=== PATIENT | female | born 1980 | race Caucasian/White ===

== ENCOUNTER 2022-08-04 08:33 | Emergency (ER) | payer OTHER, SELFPAY ==
[2022-08-04 08:41] VITALS: BP 120/93; PULSE 87; RESP 16; TEMP 36.4; O2SAT 96; BMI 54.2
--- NOTE | 2022-08-04 09:14 | ED.GENADULT ---
HPI - General Adult General Chief complaint: General Medical Stated complaint: swollen throat, headache/pressure Time Seen by Provider: 08/04/22 09:05 Source: patient Mode of arrival: ambulatory Limitations: no limitations History of Present Illness HPI narrative: 42 year old female who presents to the emergency department with sore throat x2 days. She reports sore throat, neck pain, pain with swallowing, headache, dry cough, decreased appetite, and left ear pain. Additionally she reports intermittent subjective fevers and chills over the last two days. She tested negative for COVID via at-home COVID test. Denies nausea, vomiting, chest pain, SOB, diarrhea, or constipation. She currently lives in a halfway and states that a few of the residents there recently tested positive for strep throat. MD complaint: sore throat Onset (ago): day(s) (2) Location: head Radiation: non-radiation Severity: mild Quality: aching Pain Consistency: constant Relieving factors: none Exacerbating factors: none Associated symptoms: cough and fever/chills Treatments prior to arrival: none Related Data Previous Rx's Medication Instructions Recorded ibuprofen 600 mg tablet 600 mg PO Q8H PRN fever or pain 08/04/22 #10 tabs Allergies Allergy/AdvReac Type Severity Reaction Status Date / Time acetaminophen [From Percocet] Allergy Intermediate Swelling Verified 08/04/22 08:41 oxycodone [From Percocet] Allergy Intermediate Swelling Verified 08/04/22 08:41 Review of Systems Review of Systems: Yes all other systems are reviewed and are negative [facility] Social History Social History Alcohol intake: never Smoked in Last 30 Days: No Advance Directives: No Physical Exam ED Vital Signs: Vital Signs - 24 hr 08/04/22 08:41 Temperature 97.5 F Pulse Rate 87 Respiratory Rate 16 Blood Pressure 120/93 H Pulse Oximetry 96 Oxygen Delivery Method Room Air BMI result Body Mass Index 54.2 Vital signs stable Appearance: Alert. Oriented X3. No acute distress. Head: normocephalic, atraumatic. Eyes: Pupils equal, round and reactive to light. ENT: Minimal erythema to the posterior oral pharynx. No tonsillar swelling or exudate. Uvula midline. Normal voice. Normal inspection of the tympanic membranes bilaterally. Neck: Normal inspection. Neck supple. No LAD. CVS: Normal heart rate and rhythm. Pulses normal. Respiratory: No respiratory distress. Breath sounds normal. Abdomen: Soft and nontender. +BS x4 Skin: Skin warm and dry. Normal skin color. Normal skin turgor. No rashes. Extremities: No lower extremity edema. No joint swelling. Neuro/psych: Oriented X 3. No motor deficit. No sensory deficit. CN II-XII intact. Normal speech and cognition. Medications Administered Discontinued Medications Generic Name Dose Route Start Last Admin Trade Name Jacqueline PRN Reason Stop Dose Admin Ibuprofen 600 mg 08/04/22 09:13 08/04/22 09:19 Ibuprofen 600 Mg Tablet PO 08/04/22 09:14 600 mg ONCE ONE Administration Lidocaine HCl 15 ml 08/04/22 09:13 08/04/22 09:19 Lidocaine Hcl Viscous 2 % 15 Ml Solution MUCOUS MEM 08/04/22 09:14 15 ml ONCE ONE Administration Medical Decision Making Medical Decision Making [facility] Narrative: 42 year old female who presents to the emergency department with sore throat, neck pain, pain with swallowing, headache, dry cough, decreased appetite, left ear pain, and subjective fevers/ chills x2 days. Sick contacts who tested + for strep throat. COVID negative via at home test. VSS. Physical exam significant for mild erythema to the posterior oral pharynx. No cervical LAD. COVID and strep swabs ordered. Patient receiving ibuprofen and viscous lidocaine for pain. COVID negative. Strep negative. most likely other viral etiology. Patient counseled on results and findings as well as supportive care. She is stable for discharge home. Patient agrees with plan. Differential Diagnosis Differential Diagnoses: The differential diagnosis associated with the presentation includes URI, COVID, flu, strep throat, No evidence of any peritonsillar or retropharyngeal abscess. Lab Data [facility] Lab Attestation statement: I reviewed the patient's lab results. COVID negative. Strep negative. Labs: Lab Results 08/04/22 08/04/22 Range/Units 09:17 09:17 COVID-19 (ROSA) Negative (Negative) COVID-19 Clin Com See Note S. pyogenes GrpA LONI Negative (Negative) Prescription Management I considered prescription management with: Pain Medication Critical Care Time Critical Care Time Critical Care Time: No Discharge Plan Discharge Clinical Impression: Viral URI Patient Disposition: Home, Self-Care Instructions: Viral Syndrome (ED) Additional Instructions: You tested negative for COVID-19 and strep throat today. Your symptoms are due to another viral illness. Treatment is rest and supportive care. Take Motrin and Tylenol as needed for sore throat, headaches and body aches. Recommend warm salt water gargles 3 times per day. Recommend [id number] Chloraseptic spray and Cepacol lozenges to help numb the back of your throat. Make sure you are drinking plenty of fluids. If you develop new or worsening symptoms call 911 or come back to the ER for further evaluation. Prescriptions: New ibuprofen 600 mg tablet 600 mg PO Q8H PRN (Reason: fever or pain) Qty: 10 0RF Interventions: ED Discharge Assessment Last Done: 08/04/22 10:22 Discharge Date/Time: 08/04/22 10:22
[2022-08-04] MEDS: Ibuprofen 600 MG TABLET PO (09:19)
[2022-08-04] MEDS: Lidocaine HCl Viscous 2 % 15 ML SOLUTION MUCOUS MEM (09:19)
[2022-08-04 09:50] LABS: IDNOW Serial# 08D9AD1C; Strep A Nucleic Acid Negative (Negative)
[2022-08-04 09:53] LABS: COVID-19 Test Negative (Negative); IDNOW Serial# BCCEAD1C
== END 2022-08-04 10:22 | disposition home or self-care (01) ==
PROVIDERS: Physician Assistant; Emergency Provider Emergency Medicine
DX: J06.9 Acute upper respiratory infection, unspecified (principal); Z20.822 Contact with and (suspected) exposure to COVID-19; Z20.828 Contact with and (suspected) exposure to other viral communicable diseases; Z79.899 Other long term (current) drug therapy
CPT/HCPCS: 87635; 87651; 99283

== ENCOUNTER 2022-08-10 18:06 | Emergency (ER) | payer OTHER, SELFPAY ==
[2022-08-10 18:18] VITALS: BP 152/99; PULSE 95; RESP 16; TEMP 36.8; O2SAT 97; BMI 55.0
--- NOTE | 2022-08-10 18:20 | ED_ITS ---
HPI - General Adult General Chief complaint: Extremity Injury, Upper Stated complaint: severe diabetic, dizziness Time Seen by Provider: 08/10/22 19:43 Source: patient Mode of arrival: ambulatory Limitations: no limitations History of Present Illness HPI narrative: 42-year-old female with a history of diabetes presents to the ER with complaints of laceration to left 1st digit. Patient reports a broken glass or a picture frame cut her finger just prior to arrival. Patient denies any associated weakness, numbness or tingling of the digit. Patient is concerned because it is still bleeding. Tetanus status is unknown Related Data Previous Rx's Medication Instructions Recorded ibuprofen 600 mg tablet 600 mg PO Q8H PRN fever or pain 08/04/22 #10 tabs Allergies Allergy/AdvReac Type Severity Reaction Status Date / Time acetaminophen [From Percocet] Allergy Intermediate Swelling Verified 08/04/22 08:41 oxycodone [From Percocet] Allergy Intermediate Swelling Verified 08/04/22 08:41 Review of Systems Review of Systems: Yes all other systems are reviewed and are negative Constitutional: Constitutional: Reports no additional constitutional complaints, Denies body ache(s), Denies chills, Denies fever(s), Denies headache(s) and Denies weakness Eyes: Eyes: Reports no additional eye complaints and Denies change in vision ENT: Reports system reviewed and no additional complaints, except as documented, Denies dizziness, Denies headache(s), Denies nasal congestion, Denies nasal discharge and Denies neck pain Cardiovascular: Cardiovascular: Reports no additional cardiovascular complaints, Denies chest pain, Denies leg edema and Denies dyspnea Respiratory: Respiratory: Reports no additional respiratory complaints, Denies cough and Denies dyspnea Gastrointestinal: Gastrointestinal: Reports no additional gastrointestinal complaints, Denies abdominal pain, Denies diarrhea, Denies nausea and Denies vomiting Genitourinary: Genitourinary: Reports no additional female genitourinary complaints and Denies urinary incontinence Musculoskeletal: Musculoskeletal: Reports no additional musculoskeletal complaints, Denies back pain, Denies arthralgias, Denies joint swelling, Denies neck pain, Denies numbness and Denies tingling Integumentary/Breasts: Skin/Breast: Reports system reviewed and no additional complaints, except as docu, Denies rash and Reports wounds Neurologic: Reports system reviewed and no additional complaints, except as documented, Denies dizziness, Denies headache(s), Denies numbness, Denies tingling and Denies weakness [facility] Past Medical History Attestation statement: The following information was validated with the patient. Source: old records reviewed Social History Social History Alcohol intake: never Advance Directives: No Advance Directives Information Provided: No Physical Exam ED Vital Signs: Vital Signs - 24 hr 08/10/22 18:18 08/10/22 20:04 Temperature 98.2 F 98.1 F Pulse Rate 95 85 Respiratory Rate 16 20 Blood Pressure 152/99 H 158/98 H Pulse Oximetry 97 98 Oxygen Delivery Method Room Air Room Air BMI result Body Mass Index 55.0 Const General: cooperative, healthy appearing, comfortable and no acute distress Orientation/consciousness: patient oriented x3 Limitations: no limitations HENMT Head: Yes normal to inspection Ears: hearing grossly normal bilaterally Eyes General: appearance normal, both eyes and all related structures Pupils: Equal, round and reactive pupils present Neck Neck: Yes normal visual inspection Chest Chest palpation & inspection: normal inspection of the chest Resp Effort & Inspection: normal respiratory effort Cardio Rate: regular rate Rhythm: regular rhythm Neuro General: patient oriented x3 Cranial nerves: Yes Equal, round and reactive pupils present Extrem Other: Over the dorsal aspect of the left 1st digit at the proximal nail bed there is a 2 cm skin avulsion with no active bleeding noted. Full range of motion of the digit with no difficulty. The nail is spared with no avulsion noted. Course Course Course Narrative: This is an RME: Additional HPI, ROS, PE not included below will be deferred to primary provider. This is a [id number]-female, with a hx of diabetes, presenting to the emergency department with complaints of laceration to her right thumb 3 hours prior to arrival. States that she is concerned as it has not stopped bleeding. On exam, pt has very small superficial avulsion laceration with active bleeding. Wound cleansed with saline, would benefit with soaking hand/finger and +/- dermabond. Does not need sutures. Medications Administered Discontinued Medications Generic Name Dose Route Start Last Admin Trade Name Freq PRN Reason Stop Dose Admin Diphtheria/Tetanus/Acell Pertussis 0.5 ml 08/10/22 20:10 08/10/22 20:25 Diphth,Pertus(Acell),Tet Adult 0.5 Ml Syringe IM 08/10/22 20:11 0.5 ml .ONCE ONE Administration Medical Decision Making Medical Decision Making [facility] Narrative: 42-year-old female here with skin avulsion to the left 1st digit which occurred on a piece of glass just prior to arrival. Patient tetanus status is unknown. Bleeding is controlled with full range of motion of the affected digit The site was cleansed by the triage nurse prior to my assessment A dressing was applied, tetanus will be updated Reviewed worrisome signs and symptoms of when to return to the emergency room. Comfortable plan for discharge home. Differential Diagnosis Differential Diagnoses: The differential diagnosis associated with the presentation includes Skin avulsion Discharge Plan Discharge Clinical Impression: Avulsion of skin Patient Disposition: Home, Self-Care Instructions: Skin Avulsion (ED) Additional Instructions: Leave the dressing in place for the next 24 hours. Then remove the dressing and washes site with soap and water daily Monitor for signs of infection which include increasing redness, swelling, drainage, fever. Prescriptions: No Action ibuprofen 600 mg tablet 600 mg PO Q8H PRN (Reason: fever or pain) Qty: 10 0RF Interventions: ED Discharge Assessment Last Done: 08/10/22 20:40 Discharge Date/Time: 08/10/22 20:40
[2022-08-10 20:04] VITALS: BP 158/98; PULSE 85; RESP 20; TEMP 36.7; O2SAT 98
[2022-08-10] MEDS: Diphth,Pertus(ACell),Tet Adult 0.5 ML SYRINGE IM (20:25)
--- NOTE | 2022-08-10 20:42 | PC.NURSE ---
late entry - pet wound on finger dressed with xeroform and gauze wrap. pt medicated with tdap vax per NICOLE
== END 2022-08-10 20:40 | disposition home or self-care (01) ==
PROVIDERS: Emergency Provider Student in an Organized Health Care Education/Training Program
DX: S61.012A Laceration without foreign body of left thumb without damage to nail, initial encounter (principal); S60.312A Abrasion of left thumb, initial encounter; W25.XXXA Contact with sharp glass, initial encounter; Y93.9 Activity, unspecified; Y92.9 Unspecified place or not applicable; Y99.9 Unspecified external cause status; Z23 Encounter for immunization
CPT/HCPCS: 90471; 90715; 99283; 99284

== ENCOUNTER 2022-08-31 21:55 | Emergency (ER) | payer OTHER, SELFPAY ==
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
[2022-08-31 21:57] VITALS: BP 153/67; PULSE 101; RESP 18; TEMP 36.2; O2SAT 95; BMI 43.3
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
[2022-09-01] MEDS: Ibuprofen 600 MG TABLET PO (02:32)
[2022-09-01 03:57] LABS: HCG Quantitative < 2 mIU/mL
== END 2022-09-01 05:54 | disposition home or self-care (01) ==
PROVIDERS: Emergency Provider Emergency Medicine
DX: Z04.1 Encounter for examination and observation following transport accident (principal); M54.9 Dorsalgia, unspecified; R51.9 Headache, unspecified
CPT/HCPCS: 36415; 70450; 72125; 84702; 99283; 99284

== ENCOUNTER 2023-02-25 23:31 | Emergency (ER) | payer OTHER, SELFPAY ==
--- NOTE | ~2023-02-25 | XR_ITS ---
EXAMINATION: XR CHEST CLINICAL INFORMATION: Cough COMPARISON: None available. TECHNIQUE: Frontal view of the chest was obtained. FINDINGS: No significant abnormality is noted involving the heart, lungs, mediastinum, bony thorax or soft tissues. XR/XR chest 1V IMPRESSION: Unremarkable examination.
[2023-02-25 23:43] VITALS: BP 190/106; PULSE 113; RESP 16; TEMP 39.4; O2SAT 92; BMI 55.0
[2023-02-26] MEDS: Acetaminophen 325 MG TABLET 650 MG PO (00:11)
[2023-02-26 00:16] LABS: Basophils Percent Auto 0.4 % (0-2); Eosinophils Percent Auto 0.1 % (0-4); Hematocrit 39.3 % (37.0-47.0); Imm Gran Abs Auto 0.03 X10*3/uL (0.00-0.03); Imm Gran Pct Auto 0.4 % (0.0-0.4); Lymphocytes Absolute Auto 1.2 X10*3/uL (1.2-4.9); Lymphocytes Percent Auto 18.4 % (20-40); MANUAL DIFF FLAG NO; Mean Corpuscular HGB Conc 33.1 g/dl (31.0-35.0); Mean Corpuscular Hemoglobin 28.6 pg (27.0-33.0); Mean Corpuscular Volume 86.6 fL (80.0-98.0); Monocytes Absolute Auto 0.7 X10*3/uL (0.1-1.2); Monocytes Percent Auto 9.8 % (2-11); Neutrophils Absolute Auto 4.8 x10*3/uL (2.0-8.3); Neutrophils Percent Auto 70.9 % (45-73); Platelet Count 274 X10*3/uL (160-400); Red Blood Count 4.54 X10*6/uL (4.20-5.50); Red Cell Distribution Width 13.2 % (11.0-16.0); White Blood Count 6.7 X10*3/uL (4.8-10.8)
[2023-02-26 00:22] LABS: IDNOW Serial# 6674DD1D; Strep A Nucleic Acid Negative (Negative)
[2023-02-26 00:29] LABS: Anion Gap 15 (12-20); Blood Urea Nitrogen 9 mg/dL (9-16); Calcium 8.7 mg/dL (8.4-10.2); Carbon Dioxide 20 mmol/L (22-29); Chloride 107 mmol/L (96-108); Creatinine Clr Calc Pharmacy 110.6; Estimated Glomerular Filt Rate > 60; Glucose Random 421 mg/dL (60-115); Potassium 4.1 mmol/L (3.3-5.1); Sodium 138 mmol/L (135-145)
[2023-02-26] MEDS: 0.9 % Sodium Chloride 1,000 ML 999 ML IV (00:52)
[2023-02-26] MEDS: Insulin Regular, Human 100 UNIT/ML 3 ML VIAL IVPUSH (00:53)
[2023-02-26] MEDS: Ketorolac Tromethamine 30 MG/ML VIAL IVPUSH (00:54)
[2023-02-26 00:56] LABS: Influenza A PCR POSITIVE (Negative); Influenza B PCR NEGATIVE (Negative); Resp Syncy Virus RNA Qual PCR NEGATIVE (Negative); SARS COV2 PCR INHOUSE NEGATIVE (Negative)
--- NOTE | 2023-02-26 00:58 | ED.GENADULT ---
HPI - General Adult General Chief complaint: General Medical Stated complaint: sore throat, fever, weak Time Seen by Provider: 02/26/23 00:25 Source: patient, RN notes reviewed and old records reviewed Mode of arrival: ambulatory Limitations: no limitations History of Present Illness HPI narrative: 42-year-old female presents for evaluation of flu-like symptoms patient reports feeling sick since yesterday. She reports cough, headache, body aches, leg weakness denies any abdominal pain, nausea, vomiting denies any known sick contacts Related Data Previous Rx's Medication Instructions Recorded ibuprofen 600 mg tablet 600 mg PO Q8H PRN fever or pain 08/04/22 #10 tabs cyclobenzaprine 10 mg tablet 10 mg PO TID PRN muscle spasm #7 09/01/22 tabs ibuprofen 600 mg tablet 600 mg PO TID PRN fever or pain 09/01/22 #20 tabs oseltamivir 75 mg capsule (Tamiflu) 75 mg PO BID 5 days #10 caps 02/26/23 Allergies Allergy/AdvReac Type Severity Reaction Status Date / Time acetaminophen [From Percocet] Allergy Intermediate Swelling Verified 02/25/23 23:56 oxycodone [From Percocet] Allergy Intermediate Swelling Verified 02/25/23 23:56 Review of Systems Constitutional: Constitutional: Reports chills, Reports fever(s) and Reports headache(s) ENT: Reports headache(s) and Reports sore throat Cardiovascular: Cardiovascular: Denies chest pain and Denies dyspnea Respiratory: Respiratory: Denies cough and Denies dyspnea Gastrointestinal: Gastrointestinal: Denies abdominal pain, Denies nausea and Denies vomiting Musculoskeletal: Musculoskeletal: Reports back pain and Reports muscle weakness Integumentary/Breasts: Skin/Breast: Denies rash and Denies wounds Neurologic: Reports headache(s) PMFSH Social History Social History Alcohol intake: never Advance Directives: No Advance Directives Information Provided: Yes Physical Exam ED Vital Signs: Vital Signs - 24 hr 02/25/23 23:43 Temperature 102.9 F H Pulse Rate 113 H Respiratory Rate 16 Blood Pressure 190/106 H Pulse Oximetry 92 Oxygen Delivery Method Room Air BMI result Body Mass Index 55.0 Const General: healthy appearing, comfortable, no acute distress, alert and awake Nutritional Appearance: well nourished Orientation/consciousness: patient oriented x3 HENMT Head: Yes normocephalic and Yes atraumatic Throat: Yes posterior oropharynx normal Eyes Eyelids: Yes eyelids normal Conjunctivae: conjunctivae normal Sclerae: sclerae normal Corneas: corneas normal Pupils: Equal, round and reactive pupils present EOM: EOMs intact bilaterally Neck Neck: Yes full ROM Resp Effort & Inspection: normal respiratory effort, able to speak in complete sentences, no audible wheezes and not labored Auscultation: clear to auscultation bilaterally Cardio Rate: regular rate Rhythm: regular rhythm GI Inspection: No distended Palpation (GI): Soft to palpation, not firm, nontender, no guarding and not rigid Skin General skin exam: elasticity normal Neuro General: patient oriented x3 Cranial nerves: Yes Equal, round and reactive pupils present and Yes Bilaterally intact EOM present Cognition (Neuro): normal cognition Extrem Other: Moving all extremities well without any obvious deformities Medications Administered Generic Name Dose Route Start Last Admin Trade Name Freq PRN Reason Stop Dose Admin Sodium Chloride 1,000 mls @ 999 mls/hr 02/26/23 00:45 02/26/23 00:52 Ns IV 02/26/23 01:45 999 mls/hr .Q1H1M DARWIN Administration Discontinued Medications Generic Name Dose Route Start Last Admin Trade Name Freq PRN Reason Stop Dose Admin Acetaminophen 650 mg 02/26/23 00:03 02/26/23 00:11 Acetaminophen 325 Mg Tablet PO 02/26/23 00:04 650 mg ONCE ONE Administration Insulin Human Regular 5 unit 02/26/23 00:39 02/26/23 00:53 Insulin Regular, Human 100 Unit/Ml 3 Ml Vial IVPUSH 02/26/23 00:40 5 unit ONCE ONE Administration Ketorolac Tromethamine 30 mg 02/26/23 00:39 02/26/23 00:54 Ketorolac Tromethamine 30 Mg/Ml Vial IVPUSH 02/26/23 00:40 30 mg ONCE ONE Administration Medical Decision Making Medical Decision Making MDM Narrative: 42-year-old female presents for evaluation of flu-like symptoms. Her glucose is elevated to 421 but she has normal anion gap. Her CO2 is just below normal at 20. This may be related to hyperventilation. she tested positive for influenza which explains all of her symptoms. she is within the window for Tamiflu treatment Differential Diagnosis Differential Diagnoses: The differential diagnosis associated with the presentation includes Influenza Upper respiratory infection Viral syndrome Pneumonia Bronchitis pharyngitis Lab Data MDM Lab Attestation statement: I reviewed the patient's lab results. as above no leukocytosis, normal electrolytes. CO2 was slightly below normal at 20 and I gap within normal limits 02/26/23 00:08 02/26/23 00:08 Labs: Lab Results 02/26/23 Range/Units 00:08 WBC 6.7 (4.8-10.8) X10*3/uL RBC 4.54 (4.20-5.50) X10*6/uL Hgb 13.0 (12.0-16.0) g/dl Hct 39.3 (37.0-47.0) % MCV 86.6 (80.0-98.0) fL MCH 28.6 (27.0-33.0) pg MCHC 33.1 (31.0-35.0) g/dl RDW 13.2 (11.0-16.0) % Plt Count 274 (160-400) X10*3/uL MPV 10.0 (9.4-12.3) fL Immature Gran % (Auto) 0.4 (0.0-0.4) % Neut % (Auto) 70.9 (45-73) % Lymph % (Auto) 18.4 L (20-40) % [place] % (Auto) 9.8 (2-11) % Eos % (Auto) 0.1 (0-4) % Baso % (Auto) 0.4 (0-2) % Lymph # (Auto) 1.2 (1.2-4.9) X10*3/uL [place] # (Auto) 0.7 (0.1-1.2) X10*3/uL Eos # (Auto) 0.0 (0.0-0.4) X10*3/uL Baso # (Auto) 0.0 (0.0-0.2) X10*3/uL Abs Immat Gran (auto) 0.03 (0.00-0.03) X10*3/uL Absolute Neuts (auto) 4.8 (2.0-8.3) x10*3/uL Absolute Nucleated RBC 0.000 (0.0-0.012) X10*3/uL Nucleated RBC % (auto) 0.0 (0.0-0.2) /100WBC Sodium 138 (135-145) mmol/L Potassium 4.1 (3.3-5.1) mmol/L Chloride 107 (96-108) mmol/L Carbon Dioxide 20 L (22-29) mmol/L Anion Gap 15 (12-20) BUN 9 (9-16) mg/dL Creatinine 0.82 (0.5-1.4) mg/dL Estim Creat Clear Calc 110.6 Estimated GFR > 60 Random Glucose 421 H* (60-115) mg/dL Calcium 8.7 (8.4-10.2) mg/dL Influenza Type A (PCR) POSITIVE A (Negative) Influenza Type B (PCR) NEGATIVE (Negative) RSV RNA Qual (PCR) NEGATIVE (Negative) SARS-CoV-2 RNA (RT-PCR) NEGATIVE (Negative) S. pyogenes GrpA LONI Negative (Negative) Independent Interpretation I performed an independent interpretation of an: Plain X-Ray ( no infiltrates) Discharge Plan Discharge Clinical Impression: Influenza A, Acute hyperglycemia Patient Disposition: Home, Self-Care Instructions: Influenza (ED) Additional Instructions: you tested positive for the flu your sugar was elevated today over 400 drink lots of fluids follow-up with your primary doctor use Motrin/ Tylenol for body aches, fevers Prescriptions: New oseltamivir [Tamiflu] 75 mg capsule 75 mg PO BID 5 Days Qty: 10 0RF No Action ibuprofen 600 mg tablet 600 mg PO Q8H PRN (Reason: fever or pain) Qty: 10 0RF ibuprofen 600 mg tablet 600 mg PO TID PRN (Reason: fever or pain) Qty: 20 0RF cyclobenzaprine 10 mg tablet 10 mg PO TID PRN (Reason: muscle spasm) Qty: 7 0RF
[2023-02-26] MEDS: Oseltamivir Phosphate 75 MG CAPSULE PO (01:16)
[2023-02-26 01:46] VITALS: PULSE 99; RESP 16; TEMP 37.6; O2SAT 97
[2023-02-26 02:00] LABS: Glucose, Whole Blood 235 mg/dL (60-115)
== END 2023-02-26 02:17 | disposition home or self-care (01) ==
PROVIDERS: Emergency Provider Internal Medicine
DX: J10.1 Influenza due to other identified influenza virus with other respiratory manifestations (principal); R73.9 Hyperglycemia, unspecified; R50.9 Fever, unspecified; M79.10 Myalgia, unspecified site; R05.9 Cough, unspecified; Z20.822 Contact with and (suspected) exposure to COVID-19; Z20.828 Contact with and (suspected) exposure to other viral communicable diseases; Z79.899 Other long term (current) drug therapy
CPT/HCPCS: 0241U; 71045; 80048; 82947; 85025; 87651; 96361; 96374; 96375; 99284; J1885

== ENCOUNTER 2023-03-31 21:13 | Emergency (ER) | payer OTHER, SELFPAY ==
[2023-03-31 21:27] VITALS: BP 206/132; PULSE 114; RESP 22; TEMP 37.1; O2SAT 98; BMI 49.4
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
[2023-03-31] MEDS: levonorgestreL 1.5 MG TABLET PO (22:46)
[2023-03-31] MEDS: Azithromycin 500 MG TABLET 1000 MG PO (22:46)
[2023-03-31 22:50] VITALS: BP 170/92; PULSE 89; RESP 17; TEMP 36.6; O2SAT 99
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
[2023-04-01 03:29] LABS: MANUAL DIFF FLAG NO
[2023-04-01 03:31] LABS: Basophils Percent Auto 0.3 % (0-2); Eosinophils Absolute Auto 0.2 X10*3/uL (0.0-0.4); Eosinophils Percent Auto 1.7 % (0-4); Hematocrit 37.8 % (37.0-47.0); Hemoglobin 12.9 g/dl (12.0-16.0); Imm Gran Abs Auto 0.05 X10*3/uL (0.00-0.03); Imm Gran Pct Auto 0.4 % (0.0-0.4); Lymphocytes Absolute Auto 3.2 X10*3/uL (1.2-4.9); Lymphocytes Percent Auto 26.6 % (20-40); Mean Corpuscular HGB Conc 34.1 g/dl (31.0-35.0); Mean Corpuscular Hemoglobin 28.7 pg (27.0-33.0); Mean Platelet Volume 9.6 fL (9.4-12.3); Monocytes Absolute Auto 0.7 X10*3/uL (0.1-1.2); Monocytes Percent Auto 5.6 % (2-11); Neutrophils Absolute Auto 7.9 x10*3/uL (2.0-8.3); Neutrophils Percent Auto 65.4 % (45-73); Platelet Count 325 X10*3/uL (160-400); Red Cell Distribution Width 13.4 % (11.0-16.0)
[2023-04-01] MEDS: cefTRIAXone sodium 500 MG, Lidocaine HCl 1 % MPF 1 ML IM (03:51)
[2023-04-01] MEDS: metroNIDAZOLE 500 MG TABLET 2000 MG PO (03:51)
[2023-04-01] MEDS: Post Exposure Medication Kit 1 KIT PO (03:52)
[2023-04-01 03:55] LABS: Alanine Aminotransferase 9 U/L (0-31); Albumin Level 3.5 g/dL (3.5-5.0); Alkaline Phosphatase 107 U/L (39-117); Anion Gap 14 (12-20); Aspartate Amino Transferase 8 U/L (5-31); Bilirubin Total 0.2 mg/dL (0.0-1.0); Blood Urea Nitrogen 9 mg/dL (9-16); Carbon Dioxide 22 mmol/L (22-29); Chloride 106 mmol/L (96-108); Creatinine Clr Calc Pharmacy 112.9; Estimated Glomerular Filt Rate > 60; Glucose Random 371 mg/dL (60-115); HCG Quantitative < 2 mIU/mL; Potassium 3.3 mmol/L (3.3-5.1); Sodium 139 mmol/L (135-145); Total Protein 6.4 g/dL (6.5-8.0)
[2023-04-01] MEDS: Emtricitabin/Tenofovir 200/300 TABLET 1 TAB PO (03:55)
[2023-04-01] MEDS: Raltegravir Potassium 400 MG TABLET PO (03:57)
--- NOTE | 2023-04-01 03:58 | PC.NURSE ---
pt medicated per mar and educated on post exposure medciations.
[2023-04-01] MEDS: lisinopriL 40 MG TABLET PO (04:12)
[2023-04-01 04:19] LABS: HBS Num1 0.34 mIU/mL (0-7.99); ~HepC Num1 0.04 S/CO (0.00-0.79); ~Hepatitis B Surface Antibody NONREACTIVE (Nonreactive); ~Hepatitis C Antibody Nonreactive (Nonreactive)
[2023-04-01 04:22] VITALS: BP 183/96; PULSE 87; RESP 18; TEMP 36.4; O2SAT 98
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
[2023-04-01 04:35] LABS: HIV AB/AG Nonreactive (Nonreactive); HIV Num 1 0.04 S/CO (0.00-0.99)
== END 2023-04-01 04:27 | disposition home or self-care (01) ==
PROVIDERS: Emergency Provider Emergency Medicine Emergency Medical Services
DX: T76.21XA Adult sexual abuse, suspected, initial encounter (principal); Z20.2 Contact with and (suspected) exposure to infections with a predominantly sexual mode of transmission; Z79.899 Other long term (current) drug therapy
CPT/HCPCS: 36415; 80053; 84702; 85025; 86706; 86803; 87389; 96372; 99284; J0696

== ENCOUNTER 2023-06-08 09:51 | Emergency (ER) | payer OTHER, SELFPAY ==
[2023-06-08 09:56] VITALS: BP 173/111; PULSE 91; RESP 18; TEMP 36.2; O2SAT 96; BMI 49.4
--- NOTE | 2023-06-08 10:46 | ED.EYEPROB ---
HPI - Eye Problem General Chief complaint: Eye Problems Stated complaint: Swollen eye Time Seen by Provider: 06/08/23 10:13 Source: patient Mode of arrival: ambulatory Limitations: no limitations History of Present Illness HPI Narrative: 43-year-old female presenting to the emergency department complaints of left eye irritation and redness X2 days. Reports she feels like theres maybe something in her eye. No pain w/ eye movements. No recent sick contacts. Denies fevers, chills, recent illness, chest pain, shortness of breath, nausea, vomiting and abdominal pain. After history taking patient also reports that she is having some white vaginal discharge she thinks it may be a yeast infection. However she tells me she does not want a vaginal exam. No concerns for you or STDs. Related Data Previous Rx's ?Medication ?Instructions ?Recorded ibuprofen 600 mg tablet 600 mg PO Q8H PRN fever or pain 08/04/22 #10 tabs cyclobenzaprine 10 mg tablet 10 mg PO TID PRN muscle spasm #7 09/01/22 tabs ibuprofen 600 mg tablet 600 mg PO TID PRN fever or pain 09/01/22 #20 tabs ibuprofen 600 mg tablet 600 mg PO Q6H PRN fever or pain 02/26/23 #20 tabs oseltamivir 75 mg capsule (Tamiflu) 75 mg PO BID 5 days #10 caps 02/26/23 emtricitabine 200 mg-tenofovir 1 tab PO DAILY 30 days #30 tabs 04/01/23 disoproxil fumarate 300 mg tablet (Truvada) fluconazole 150 mg tablet 150 mg PO QWEEK 2 doses #2 tabs 04/01/23 lisinopril 40 mg tablet 40 mg PO DAILY 30 days #30 tabs 04/01/23 ondansetron 4 mg disintegrating 4 mg PO Q8H PRN nausea and 04/01/23 tablet vomiting #30 tabs raltegravir 400 mg tablet 400 mg PO BID 30 days #60 tabs 04/01/23 erythromycin 5 mg/gram (0.5 %) eye 1 appl ophthalmic (eye) TID 5 days 06/08/23 ointment #3.5 grams fluconazole 150 mg tablet 150 mg PO Q3D 2 doses #2 tabs 06/08/23 Allergies Allergy/AdvReac Type Severity Reaction Status Date / Time acetaminophen [From Percocet] Allergy Intermediate Swelling Verified 06/08/23 10:00 oxycodone [From Percocet] Allergy Intermediate Difficulty Verified 06/08/23 10:00 Breathing Review of Systems Review of Systems: Yes all other systems are reviewed and are negative [facility] Past Medical History Attestation statement: The following information was validated with the patient. Source: old records reviewed and nursing notes reviewed Social History Social History Alcohol intake: never Advance Directives: No Advance Directives Information Provided: No Physical Exam Vital Signs: Vital Signs: Last Vital Signs Temp 97 F 06/08/23 11:18 Pulse 89 06/08/23 11:18 Resp 18 06/08/23 11:18 BP 155/75 H 06/08/23 11:18 Pulse Ox 98 06/08/23 11:18 O2 Del Method Room Air 06/08/23 11:18 BMI result Body Mass Index 49.4 Patient hypertensive. Will have her follow-up with PCP. Appearance: Alert.? Oriented X3.? No acute distress.? Head: Normocephalic, atraumatic, no step-offs or deformities Eyes: Pupils equal, round and reactive to light.? Slight left-sided conjunctival injection. Extraocular movements intact and pain-free. No periorbital or orbital cellulitis. Neck: Normal inspection.? Neck supple.? CVS: Normal heart rate and rhythm.? Pulses normal.? Respiratory: No respiratory distress.? Breath sounds normal.? Abdomen: Soft and nontender.? Sensative exam: refused Skin: Skin warm and dry.? Normal skin color.? Normal skin turgor.? Extremities: No lower extremity edema.? No calf ttp. 5/5 strength to bilateral upper and lower extremities Neuro: Oriented X 3.? No motor deficit.? No sensory deficit. CN 2-12 intact Course Reevaluation(s) Reevaluation #1: A fluorescein a fluorescein stain was done, no uptake to the left eye. Negative Timothy sign. Patient now requesting a test. test pending. Educated patient on diagnosis and treatment plan, answered all question, patient verbalizes understanding. At this time patient will be discharged home, advised to return with new or worsening symptoms. Educated on worrisome signs and symptoms and when to return. At this time I feel comfortable discharge home. Time: 10:52 Reevaluation #2: Ua and preg negative. Medical Decision Making Medical Decision Making MDM Narrative: 43-year-old female presents with left eye injections since yesterday. No pain. Also reporting thick white vaginal discharge thinks it may be a yeast infection. Physical exam left-sided conjunctival injection. History and physical exam concerning for viral versus bacterial conjunctivitis. Unlikely foreign body/corneal abrasion or ulcer. Unlikely wet macular degeneration acute closed angle glaucoma. Vaginal discharge likely yeast versus BV. Unlikely gonorrhea or chlamydia as patient denies risk. Patient states she has not . Plan at this time will discharge with erythromycin and fluconazole. Educated patient on diagnosis and treatment plan, answered all question, patient verbalizes understanding. At this time patient will be discharged home, advised to return with new or worsening symptoms. Educated on worrisome signs and symptoms and when to return. At this time I feel comfortable discharge home. Differential Diagnosis Differential Diagnoses: The differential diagnosis associated with the presentation includes History and physical exam concerning for viral versus bacterial conjunctivitis. Unlikely foreign body/corneal abrasion or ulcer. Unlikely wet macular degeneration acute closed angle glaucoma. Vaginal discharge likely yeast versus BV. Unlikely gonorrhea or chlamydia as patient denies risk. Patient states she has not . Admission/Observation Consideration of admission/observation: Escalation of care including admission/observation considered Unlikely Lab Data Labs: Lab Results 06/08/23 Range/Units 11:03 Urine Color Yellow Urine Appearance Clear Urine pH 6.5 (5.0-9.0) Ur Specific [place] >= 1.030 H (1.005-1.025) Urine Protein Negative (Neg-Trace) mg/dL Urine Glucose (UA) >=1000 H (Negative) mg/dL Urine Ketones 40 (Negative) mg/dL Urine Blood Negative (Negative) Urine Nitrite Negative (Negative) Ur Leukocyte Esterase Negative (Negative) Urine Test NEGATIVE (NEGATIVE) Discharge Plan Discharge Clinical Impression: Bacterial conjunctivitis, Vaginal discharge Patient Disposition: Home, Self-Care Instructions: Vaginal Discharge (ED), Conjunctivitis (ED) Additional Instructions: Take your medications as prescribed. If you were prescribed antibiotics today, it is important that you take your medication to their entirety, do not skip any doses, do not finish them early. Follow-up with your primary care provider this week. Return to the emergency department with new or worsening symptoms. In case of emergency call 911 Prescriptions: New erythromycin 5 mg/gram (0.5 %) ointment 1 appl ophthalmic (eye) TID 5 Days Qty: 3.5 0RF fluconazole 150 mg tablet 150 mg PO Q3D 0 Days Qty: 2 0RF No Action ibuprofen 600 mg tablet 600 mg PO Q8H PRN (Reason: fever or pain) Qty: 10 0RF oseltamivir [Tamiflu] 75 mg capsule 75 mg PO BID 5 Days Qty: 10 0RF ibuprofen 600 mg tablet 600 mg PO Q6H PRN (Reason: fever or pain) Qty: 20 0RF ibuprofen 600 mg tablet 600 mg PO TID PRN (Reason: fever or pain) Qty: 20 0RF cyclobenzaprine 10 mg tablet 10 mg PO TID PRN (Reason: muscle spasm) Qty: 7 0RF emtricitabine-tenofovir (TDF) [Truvada] 200-300 mg tablet 1 tab PO DAILY 30 Days Qty: 30 0RF raltegravir 400 mg tablet 400 mg PO BID 30 Days Qty: 60 0RF fluconazole 150 mg tablet 150 mg PO QWEEK Qty: 2 0RF ondansetron 4 mg tablet,disintegrating 4 mg PO Q8H PRN (Reason: nausea and vomiting) Qty: 30 0RF lisinopril 40 mg tablet 40 mg PO DAILY 30 Days Qty: 30 0RF Referrals: Physician,Unknown J [Primary Care Provider] - 2 days Stand Alone Forms: Work/School Release Interventions: ED Discharge Assessment Last Done: 06/08/23 11:18 Discharge Date/Time: 06/08/23 11:16 Print Language: Mohawk
[2023-06-08 11:18] VITALS: BP 155/75; PULSE 89; RESP 18; TEMP 36.1; O2SAT 98
[2023-06-08 11:29] LABS: Appearance Urine Clear; Color Urine Yellow; Glucose Urine UA >=1000 mg/dL (Negative); Leukocyte Esterase Urine Negative (Negative); Nitrite Urine Negative (Negative); PH 6.5 (5.0-9.0); Specific Gravity - Urine >= 1.030 (1.005-1.025); UMIC TRIGGER UACC YES; Urine Blood Negative (Negative); Urine Ketones 40 mg/dL (Negative); Urine Protein Negative (Neg-Trace)
[2023-06-08 11:30] LABS: UPreg QC Valid YES; Urine Pregnancy NEGATIVE (NEGATIVE)
[2023-06-08 11:34] LABS: Bacteria Urine None Seen (None Seen); Hyaline Casts Urine 0-2 /LPF (0-2); RBC Urine 0-2 /HPF (0-2); Squamous Epithelial Cell Urine 0-2 /HPF (0-2); WBC Urine 0-5 /HPF (0-5)
== END 2023-06-08 11:16 | disposition home or self-care (01) ==
PROVIDERS: Physician Assistant; Emergency Provider Student in an Organized Health Care Education/Training Program
DX: H10.32 Unspecified acute conjunctivitis, left eye (principal); N89.8 Other specified noninflammatory disorders of vagina; Z79.899 Other long term (current) drug therapy
CPT/HCPCS: 81001; 81025; 99283; 99284

== ENCOUNTER 2023-09-20 09:42 | Emergency (ER) | payer OTHER, SELFPAY ==
--- NOTE | ~2023-09-20 | XR_ITS ---
EXAMINATION: XR KNEE, RIGHT CLINICAL INFORMATION: Hyperextension of knee with pain COMPARISON: None available. TECHNIQUE: Four views of the right knee. FINDINGS: There is no evidence of acute fracture or dislocation of the right knee. No significant right knee effusion is appreciated. There is marginal spurring present about the medial lateral joint space compartments but without significant narrowing appreciated. There is mild narrowing of the patellofemoral joint with spurring present. There is a 4 mm round rim calcified density seen about the anterior right knee on lateral view which may represent a loose body. 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 Question 4 mm loose body.
[2023-09-20 09:44] VITALS: BP 186/123; PULSE 94; RESP 19; TEMP 36.6; O2SAT 98; BMI 48.8
--- NOTE | 2023-09-20 10:11 | ED_ITS ---
HPI - General Adult General Chief complaint: Extremity Injury, Lower Stated complaint: R Knee Pain S/P Injury 09/19/23 Time Seen by Provider: 09/20/23 10:11 Source: patient Mode of arrival: wheelchair Limitations: no limitations History of Present Illness ED Provider: Renee Quinteros PA-C HPI narrative: Patient is a 43 year old assigned female at with a history of HTN (uncontrolled) presenting to the emergency department today with right knee pain. Patient states that last night she had a trip and fall and landed on her right knee. Patient denies any head strike, loss of consciousness, dizziness, lightheadedness, abdominal pain, nausea, vomiting, fever, chills, blurry vision, double vision, loss of vision, chest pain, difficulty breathing, shortness of breath, back pain, night sweats, pain with urination, increased urinary frequency, increased urinary urgency, blood in her urine or stool, syncope or a near syncopal episode, bowel incontinence, bladder incontinence, or any other complaints at this time. Onset (ago): day(s) (1) Location: right and lower extremity Radiation: non-radiation Severity: mild Severity scale (1-10): 4 Quality: aching and dull Pain Consistency: constant Relieving factors: immobilization Exacerbating factors: movement Associated symptoms: denies other symptoms Treatments prior to arrival: none Related Data Previous Rx's ?Medication ?Instructions ?Recorded ibuprofen 600 mg tablet 600 mg PO Q8H PRN fever or pain 08/04/22 #10 tabs cyclobenzaprine 10 mg tablet 10 mg PO TID PRN muscle spasm #7 09/01/22 tabs ibuprofen 600 mg tablet 600 mg PO TID PRN fever or pain 09/01/22 #20 tabs ibuprofen 600 mg tablet 600 mg PO Q6H PRN fever or pain 02/26/23 #20 tabs oseltamivir 75 mg capsule (Tamiflu) 75 mg PO BID 5 days #10 caps 02/26/23 emtricitabine 200 mg-tenofovir 1 tab PO DAILY 30 days #30 tabs 04/01/23 disoproxil fumarate 300 mg tablet (Truvada) fluconazole 150 mg tablet 150 mg PO QWEEK 2 doses #2 tabs 04/01/23 lisinopril 40 mg tablet 40 mg PO DAILY 30 days #30 tabs 04/01/23 ondansetron 4 mg disintegrating 4 mg PO Q8H PRN nausea and 04/01/23 tablet vomiting #30 tabs raltegravir 400 mg tablet 400 mg PO BID 30 days #60 tabs 04/01/23 erythromycin 5 mg/gram (0.5 %) eye 1 appl ophthalmic (eye) TID 5 days 06/08/23 ointment #3.5 grams fluconazole 150 mg tablet 150 mg PO Q3D 2 doses #2 tabs 06/08/23 ibuprofen 600 mg tablet 600 mg PO Q8H PRN pain #30 tabs 09/20/23 Allergies Allergy/AdvReac Type Severity Reaction Status Date / Time acetaminophen [From Percocet] Allergy Intermediate Swelling Verified 09/20/23 09:45 oxycodone [From Percocet] Allergy Intermediate Difficulty Verified 09/20/23 09:45 Breathing Review of Systems Constitutional: Constitutional: Reports no additional constitutional complaints, Denies chills, Denies fever(s) and Denies night sweats Eyes: Eyes: Reports no additional eye complaints, Denies blurry vision, Denies change in vision, Denies diplopia, Denies eye discharge, Denies loss of vision and Denies eye pain ENT: Denies dizziness Cardiovascular: Cardiovascular: Reports no additional cardiovascular complaints, Denies chest pain, Denies lightheadedness, Denies Loss of Consciousness and Denies dyspnea Respiratory: Respiratory: Reports no additional respiratory complaints and Denies dyspnea Gastrointestinal: Gastrointestinal: Reports no additional gastrointestinal complaints, Denies abdominal pain, Denies melena, Denies hematochezia, Denies change in bowel habits and Denies change in stool character Genitourinary: Genitourinary: Denies hematuria, Denies urinary frequency, Denies dysuria, Denies urinary incontinence, Denies urinary hesitancy and Denies urinary urgency Musculoskeletal: Musculoskeletal: Reports no additional musculoskeletal complaints, Denies numbness and Denies tingling Comments: right knee pain Neurologic: Denies dizziness, Denies loss of vision, Denies numbness and Denies tingling Psychiatric: Psychiatric: Reports no additional psychiatric complaints Endocrine: Endocrine: Reports no additional endocrine complaints Hematologic/Lymphatic: Hematologic/Lymphatic: Reports no additional hematologic/lymphatic complaints Allergic/Immunologic: Allergic/Immunologic: Reports no additional allergic/immunologic complaints PMFSH Past Medical History Attestation statement: The following information was validated with the patient. Source: old records reviewed and nursing notes reviewed Social History Social History Alcohol intake: never Advance Directives: No Advance Directives Information Provided: No Physical Exam ED Vital Signs: Vital Signs - 24 hr 09/20/23 09:44 Temperature 98 F Pulse Rate 94 Respiratory Rate 19 Blood Pressure 186/123 H Pulse Oximetry 98 Oxygen Delivery Method Room Air BMI result Body Mass Index 48.8 Const General: cooperative, no acute distress, alert and awake Nutritional Appearance: well nourished Orientation/consciousness: patient oriented x3 Limitations: no limitations HENMT Head: Yes normal to inspection and Yes atraumatic Ears: hearing grossly normal bilaterally and external ears normal General nose exam: Normal external nose present, no nasal discharge noted and no epistaxis Face and sinus: Yes normal facial exam, No abrasion and No laceration Mouth: Normal oral and palatal mucosa present, no drooling and no muffled voice Eyes General: appearance normal, both eyes and all related structures Periorbital: periorbital findings normal Eyelids: Yes eyelids normal Conjunctivae: conjunctivae normal Pupils: Equal, round and reactive pupils present EOM: EOMs intact bilaterally Neck Neck: Yes normal visual inspection, Yes full ROM and Yes no lymphadenopathy Chest Chest palpation & inspection: normal inspection of the chest Resp Effort & Inspection: normal respiratory effort and able to speak in complete sentences GI Inspection: Yes normal to inspection Neuro General: patient oriented x3 and moves all extremities Cranial nerves: Yes Equal, round and reactive pupils present Cognition (Neuro): normal cognition Extrem Other: pain with right knee ROM General: Yes normal to inspection, Yes full ROM and Yes capillary refill normal Psych Appearance: grossly normal Mental Status: mental status grossly normal Affect: normal affect Attitude: cooperative Thought process: Normal thought process present Thought content: Normal thought content present Insight: Good insight present (Psych) Medications Administered Discontinued Medications Generic Name Dose Route Start Last Admin Trade Name Freq PRN Reason Stop Dose Admin Ibuprofen 400 mg 09/20/23 10:31 09/20/23 10:40 Ibuprofen 400 Mg Tablet PO 09/20/23 10:32 400 mg ONCE ONE Administration Procedures Orthopedic Splinting/Casting Injury #1: Side: right Lower Extremity Injury Location: knee Lower Extremity Immobilizer: Vikas wrap Other Orthopedic Equipment: crutches Medical Decision Making Medical Decision Making MDM Narrative: Patient is a 43 year old assigned female at with a history of uncontrolled HTN presenting to the emergency department today with right knee pain. Patient's physical exam was as noted in the physical exam portion of this note. Patient's right knee x-ray showed no acute process. I explained my physical exam findings as well as all test results to the patient. I answered all questions asked by the patient. Patient's right knee was placed in an VIKAS wrap and she was given crutches with crutch instructions. Patient's PMS was intact prior to and after VIKAS Wrap. I stressed the importance of the patient taking her medication as directed (either prescribed or as the over the counter packaging recommends). I stressed the importance of the patient following up with her primary care provider and an orthopedic provider. I stressed the importance of the patient returning to the emergency department immediately if her symptoms were to worsen or if she were to develop any dizziness, shortness of breath, difficulty breathing, chest pain, blurry vision, loss of vision, nausea, vomiting, abdominal pain, fever, chills, back pain, or any other complaints. Patient verbalized agreement and understanding with this treatment plan and discharge. Differential Diagnosis Differential Diagnoses: The differential diagnosis associated with the presentation includes Knee sprain Knee strain Knee pain Patellar tendon injury Admission/Observation Consideration of admission/observation: Escalation of care including admission/observation considered Patient would have been admitted to the hospital had her work up had any findings where hospital admission was appropriate and her clinical presentation warranted hospital admission. Independent Interpretation I performed an independent interpretation of an: Plain X-Ray Interpretation: My interpretation is in agreement with the radiologist's impression of this imaging study. EXAMINATION: XR KNEE, RIGHT CLINICAL INFORMATION: Hyperextension of knee with pain COMPARISON: None available. TECHNIQUE: Four views of the right knee. FINDINGS: There is no evidence of acute fracture or dislocation of the right knee. No significant right knee effusion is appreciated. There is marginal spurring present about the medial lateral joint space compartments but without significant narrowing appreciated. There is mild narrowing of the patellofemoral joint with spurring present. There is a 4 mm round rim calcified density seen about the anterior right knee on lateral view which may represent a loose body. 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 Question 4 mm loose body. Dictated By: Cuong Mccall MD Signed By: Electronically signed by Cuong Mccall MD 09/20/23 1024 Radiology Impression Discussion of test interpretation with radiology: I have reviewed the radiologist's reading. Chronic Conditions Patient?s care impacted by: Hypertension (uncontrolled) Discharge Plan Discharge Clinical Impression: Acute knee pain, Knee strain, Knee sprain Patient Disposition: Home, Self-Care Instructions: Knee Sprain (DC), Knee Pain (ED) Additional Instructions: Follow up with your primary care provider and an orthopedic provider. Return to the emergency department immediately if your symptoms worsen or if you develop any dizziness, shortness of breath, difficulty breathing, chest pain, blurry vision, loss of vision, nausea, vomiting, abdominal pain, fever, chills, back pain, or any other complaints. Prescriptions: New ibuprofen 600 mg tablet 600 mg PO Q8H PRN (Reason: pain) Qty: 30 0RF No Action ibuprofen 600 mg tablet 600 mg PO Q8H PRN (Reason: fever or pain) Qty: 10 0RF oseltamivir [Tamiflu] 75 mg capsule 75 mg PO BID 5 Days Qty: 10 0RF ibuprofen 600 mg tablet 600 mg PO Q6H PRN (Reason: fever or pain) Qty: 20 0RF erythromycin 5 mg/gram (0.5 %) ointment 1 appl ophthalmic (eye) TID 5 Days Qty: 3.5 0RF fluconazole 150 mg tablet 150 mg PO Q3D 0 Days Qty: 2 0RF ibuprofen 600 mg tablet 600 mg PO TID PRN (Reason: fever or pain) Qty: 20 0RF cyclobenzaprine 10 mg tablet 10 mg PO TID PRN (Reason: muscle spasm) Qty: 7 0RF emtricitabine-tenofovir (TDF) [Truvada] 200-300 mg tablet 1 tab PO DAILY 30 Days Qty: 30 0RF raltegravir 400 mg tablet 400 mg PO BID 30 Days Qty: 60 0RF fluconazole 150 mg tablet 150 mg PO QWEEK Qty: 2 0RF ondansetron 4 mg tablet,disintegrating 4 mg PO Q8H PRN (Reason: nausea and vomiting) Qty: 30 0RF lisinopril 40 mg tablet 40 mg PO DAILY 30 Days Qty: 30 0RF [place] [facility] [facility] [place] (Call to establish and follow up with a primary care provider. If you already have a primary care provider, please follow up with them.) [facility] [place] [facility] [place] [facility] [place] [facility] [place] [facility] [place] [facility] [place] (Call to establish and follow up with an orthopedic provider.) Stand Alone Forms: Work/School Release Print Language: Eritrean
[2023-09-20] MEDS: Ibuprofen 400 MG TABLET PO (10:40)
[2023-09-20 12:42] VITALS: BP 186/123; PULSE 94; RESP 19; TEMP 36.6; O2SAT 98
== END 2023-09-20 12:43 | disposition home or self-care (01) ==
PROVIDERS: Emergency Provider Student in an Organized Health Care Education/Training Program
DX: S83.91XA Sprain of unspecified site of right knee, initial encounter (principal); S86.811A Strain of other muscle(s) and tendon(s) at lower leg level, right leg, initial encounter; W01.0XXA Fall on same level from slipping, tripping and stumbling without subsequent striking against object, initial encounter; M25.561 Pain in right knee; Y93.9 Activity, unspecified; Y92.9 Unspecified place or not applicable; Y99.9 Unspecified external cause status
CPT/HCPCS: 73564; 99283

== ENCOUNTER 2023-10-02 08:57 | Emergency (ER) | payer OTHER, SELFPAY ==
[2023-10-02 09:08] VITALS: BP 169/105; PULSE 91; RESP 16; TEMP 36.6; O2SAT 98; BMI 44.9
--- NOTE | 2023-10-02 09:37 | ED.EXTPRO ---
HPI - Extremity Problem General Chief complaint: Extremity Problem Stated complaint: l index finger infection Time Seen by Provider: 10/02/23 09:32 History of Present Illness ED Provider: Patient complains of redness pain and swelling around the nailbed of the le HPI Narrative: Patient complains of redness pain and swelling around left index finger nailbed for past 2 or 3 days without fever no injury no difficulty moving the finger, no numbness weakness or tingling Related Data Previous Rx's ?Medication ?Instructions ?Recorded ibuprofen 600 mg tablet 600 mg PO Q8H PRN fever or pain 08/04/22 #10 tabs cyclobenzaprine 10 mg tablet 10 mg PO TID PRN muscle spasm #7 09/01/22 tabs ibuprofen 600 mg tablet 600 mg PO TID PRN fever or pain 09/01/22 #20 tabs ibuprofen 600 mg tablet 600 mg PO Q6H PRN fever or pain 02/26/23 #20 tabs oseltamivir 75 mg capsule (Tamiflu) 75 mg PO BID 5 days #10 caps 02/26/23 emtricitabine 200 mg-tenofovir 1 tab PO DAILY 30 days #30 tabs 04/01/23 disoproxil fumarate 300 mg tablet (Truvada) fluconazole 150 mg tablet 150 mg PO QWEEK 2 doses #2 tabs 04/01/23 lisinopril 40 mg tablet 40 mg PO DAILY 30 days #30 tabs 04/01/23 ondansetron 4 mg disintegrating 4 mg PO Q8H PRN nausea and 04/01/23 tablet vomiting #30 tabs raltegravir 400 mg tablet 400 mg PO BID 30 days #60 tabs 04/01/23 erythromycin 5 mg/gram (0.5 %) eye 1 appl ophthalmic (eye) TID 5 days 06/08/23 ointment #3.5 grams fluconazole 150 mg tablet 150 mg PO Q3D 2 doses #2 tabs 06/08/23 ibuprofen 600 mg tablet 600 mg PO Q8H PRN pain #30 tabs 09/20/23 cephalexin 500 mg tablet 500 mg PO QID 7 days #28 tabs 10/02/23 doxycycline hyclate 100 mg capsule 100 mg PO BID 7 days #14 caps 10/02/23 ibuprofen 600 mg tablet 600 mg PO Q6H PRN pain #20 tabs 10/02/23 Allergies Allergy/AdvReac Type Severity Reaction Status Date / Time oxycodone [From Percocet] Allergy Intermediate Difficulty Verified 10/02/23 09:09 Breathing PMFSH Past Medical History Source: nursing notes reviewed Social History Social History Alcohol intake: never Advance Directives: No Advance Directives Information Provided: No Physical Exam Vital Signs: Vital Signs: Last Vital Signs Temp 98 F 10/02/23 11:31 Pulse 91 10/02/23 11:31 Resp 16 10/02/23 11:31 BP 169/105 H 10/02/23 11:31 Pulse Ox 98 10/02/23 11:31 O2 Del Method Room Air 10/02/23 11:31 BMI result Body Mass Index 44.9 General appearance no distress Head is normocephalic atraumatic Neck is supple Respiratory no distress Extremities full range motion x4 Left index finger had swelling around lateral nailbed, consistent with paronychia no sign of felon, all joints had full range of motion, no redness anywhere except the lateral nailbed, neurovascular intact distal, skin is intact Skin no rashes Course Course Course Narrative: Procedure note Left index finger paronychia is cleansed with Betadine Anesthesia is 6 cc of 1% lidocaine digital block with good anesthesia Nailbed was punctured with a 11 blade with discharge of pus which was then fully expressed, small piece of packing placed and dressing applied Medications Administered Discontinued Medications Generic Name Dose Route Start Last Admin Trade Name Freq PRN Reason Stop Dose Admin Cephalexin HCl 500 mg 10/02/23 09:36 10/02/23 09:42 Cephalexin 500 Mg Capsule PO 10/02/23 09:37 500 mg ONCE ONE Administration Doxycycline Monohydrate 100 mg 10/02/23 09:36 10/02/23 09:42 Doxycycline Monohydrate 100 Mg Capsule PO 10/02/23 09:37 100 mg ONCE ONE Administration Lidocaine HCl 5 ml 10/02/23 09:34 10/02/23 09:43 Lidocaine Hcl 1 % Mpf 5 Ml Vial SUBCUT 10/02/23 09:35 5 ml ONCE ONE Administration Lidocaine HCl 5 ml 10/02/23 09:35 10/02/23 09:43 Lidocaine Hcl 1 % Mpf 5 Ml Vial SUBCUT 10/02/23 09:36 5 ml ONCE ONE Administration Discharge Plan Discharge Clinical Impression: Paronychia of finger of left hand Patient Disposition: Home, Self-Care Additional Instructions: Take antibiotics as prescribed Change dressing once a day If packing falls out do not try to replace it If packing remains after 2 days soak in water and pull it out If wound is not improving or you are not sure treatment is working return in 2 days for wound check Return any time for spreading redness worse pain and swelling fever any sign of any worse condition or worse infection Prescriptions: New doxycycline hyclate 100 mg capsule 100 mg PO BID 7 Days Qty: 14 0RF cephalexin 500 mg tablet 500 mg PO QID 7 Days Qty: 28 0RF ibuprofen 600 mg tablet 600 mg PO Q6H PRN (Reason: pain) Qty: 20 0RF No Action ibuprofen 600 mg tablet 600 mg PO Q8H PRN (Reason: fever or pain) Qty: 10 0RF oseltamivir [Tamiflu] 75 mg capsule 75 mg PO BID 5 Days Qty: 10 0RF ibuprofen 600 mg tablet 600 mg PO Q6H PRN (Reason: fever or pain) Qty: 20 0RF erythromycin 5 mg/gram (0.5 %) ointment 1 appl ophthalmic (eye) TID 5 Days Qty: 3.5 0RF fluconazole 150 mg tablet 150 mg PO Q3D 0 Days Qty: 2 0RF ibuprofen 600 mg tablet 600 mg PO TID PRN (Reason: fever or pain) Qty: 20 0RF cyclobenzaprine 10 mg tablet 10 mg PO TID PRN (Reason: muscle spasm) Qty: 7 0RF emtricitabine-tenofovir (TDF) [Truvada] 200-300 mg tablet 1 tab PO DAILY 30 Days Qty: 30 0RF raltegravir 400 mg tablet 400 mg PO BID 30 Days Qty: 60 0RF fluconazole 150 mg tablet 150 mg PO QWEEK Qty: 2 0RF ondansetron 4 mg tablet,disintegrating 4 mg PO Q8H PRN (Reason: nausea and vomiting) Qty: 30 0RF lisinopril 40 mg tablet 40 mg PO DAILY 30 Days Qty: 30 0RF ibuprofen 600 mg tablet 600 mg PO Q8H PRN (Reason: pain) Qty: 30 0RF Stand Alone Forms: Work/School Release Interventions: ED Discharge Assessment Last Done: 10/02/23 11:31 Discharge Date/Time: 10/02/23 11:32 Print Language: Telugu
[2023-10-02] MEDS: Doxycycline Monohydrate 100 MG CAPSULE PO (09:42)
[2023-10-02] MEDS: cephALEXin 500 MG CAPSULE PO (09:42)
[2023-10-02] MEDS: Lidocaine HCl 1 % MPF 5 ML VIAL SUBCUT ×2 (09:43)
[2023-10-02 11:31] VITALS: BP 169/105; PULSE 91; RESP 16; TEMP 36.6; O2SAT 98
== END 2023-10-02 11:32 | disposition home or self-care (01) ==
PROVIDERS: Emergency Provider Emergency Medicine
DX: L03.012 Cellulitis of left finger (principal); M79.645 Pain in left finger(s)
CPT/HCPCS: 10060; 99282; 99284

== ENCOUNTER 2024-03-09 07:36 | Emergency (ER) | payer OTHER, SELFPAY ==
[2024-03-09 07:39] VITALS: BP 154/90; PULSE 97; RESP 20; TEMP 36.4; O2SAT 99; BMI 44.3
--- NOTE | 2024-03-09 09:07 | ED.GENADULT ---
HPI - General Adult General Chief complaint: Skin/Abscess/Foreign Body Stated complaint: Finger infection, wound on forehead Time Seen by Provider: 03/09/24 09:02 Source: patient Mode of arrival: ambulatory Limitations: no limitations History of Present Illness ED Provider: Renee Quinteros PA-C HPI narrative: Patient is a 43 year old assigned female at with a history of recent BV diagnosis presenting to the emergency department today with left thumb pain and forehead pain x1 week. Patient states that over the last week she has noticed redness and swelling to the tip of her left thumb as well as an area on her forehead that is painful and read. Patient states that she gets infections on her forehead fairly frequently. Patient states that she was also diagnosed with BV recently but does not want to use the gel she was prescribed and is requesting PO medication. Patient denies any dizziness, lightheadedness, abdominal pain, nausea, vomiting, fever, chills, blurry vision, double vision, loss of vision, chest pain, difficulty breathing, shortness of breath, back pain, night sweats, pain with urination, increased urinary frequency, increased urinary urgency, blood in her urine or stool, syncope or a near syncopal episode, recent trauma or falls, bowel incontinence, bladder incontinence, or any other complaints at this time. Onset (ago): week(s) (1) Relieving factors: none Exacerbating factors: none Related Data Previous Rx's ?Medication ?Instructions ?Recorded ibuprofen 600 mg tablet 600 mg PO Q8H PRN fever or pain 08/04/22 #10 tabs cyclobenzaprine 10 mg tablet 10 mg PO TID PRN muscle spasm #7 09/01/22 tabs ibuprofen 600 mg tablet 600 mg PO TID PRN fever or pain 09/01/22 #20 tabs ibuprofen 600 mg tablet 600 mg PO Q6H PRN fever or pain 02/26/23 #20 tabs oseltamivir 75 mg capsule (Tamiflu) 75 mg PO BID 5 days #10 caps 02/26/23 emtricitabine 200 mg-tenofovir 1 tab PO DAILY 30 days #30 tabs 04/01/23 disoproxil fumarate 300 mg tablet (Truvada) fluconazole 150 mg tablet 150 mg PO QWEEK 2 doses #2 tabs 04/01/23 lisinopril 40 mg tablet 40 mg PO DAILY 30 days #30 tabs 04/01/23 ondansetron 4 mg disintegrating 4 mg PO Q8H PRN nausea and 04/01/23 tablet vomiting #30 tabs raltegravir 400 mg tablet 400 mg PO BID 30 days #60 tabs 04/01/23 erythromycin 5 mg/gram (0.5 %) eye 1 appl ophthalmic (eye) TID 5 days 06/08/23 ointment #3.5 grams fluconazole 150 mg tablet 150 mg PO Q3D 2 doses #2 tabs 06/08/23 ibuprofen 600 mg tablet 600 mg PO Q8H PRN pain #30 tabs 09/20/23 cephalexin 500 mg tablet 500 mg PO QID 7 days #28 tabs 10/02/23 doxycycline hyclate 100 mg capsule 100 mg PO BID 7 days #14 caps 10/02/23 ibuprofen 600 mg tablet 600 mg PO Q6H PRN pain #20 tabs 10/02/23 cephalexin 500 mg capsule 500 mg PO Q6H 7 days #28 caps 03/09/24 doxycycline hyclate 100 mg tablet 100 mg PO BID 7 days #14 tabs 03/09/24 metronidazole 500 mg tablet 500 mg PO BID 7 days #14 tabs 03/09/24 Allergies Allergy/AdvReac Type Severity Reaction Status Date / Time oxycodone [From Percocet] Allergy Intermediate Difficulty Verified 03/09/24 07:41 Breathing Review of Systems Constitutional: Constitutional: Reports no additional constitutional complaints, Denies chills, Denies fever(s) and Denies night sweats Eyes: Eyes: Reports no additional eye complaints, Denies blurry vision, Denies change in vision, Denies diplopia, Denies eye discharge, Denies loss of vision and Denies eye pain ENT: Denies dizziness Cardiovascular: Cardiovascular: Reports no additional cardiovascular complaints, Denies chest pain, Denies lightheadedness, Denies Loss of Consciousness and Denies dyspnea Respiratory: Respiratory: Reports no additional respiratory complaints and Denies dyspnea Gastrointestinal: Gastrointestinal: Reports no additional gastrointestinal complaints, Denies abdominal pain, Denies melena, Denies hematochezia, Denies change in bowel habits and Denies change in stool character Genitourinary: Genitourinary: Denies hematuria, Denies urinary frequency, Denies dysuria, Denies urinary incontinence, Denies urinary hesitancy and Denies urinary urgency Musculoskeletal: Musculoskeletal: Reports no additional musculoskeletal complaints, Denies numbness and Denies tingling Comments: left thumb pain forehead pain Neurologic: Denies dizziness, Denies loss of vision, Denies numbness and Denies tingling Psychiatric: Psychiatric: Reports no additional psychiatric complaints Endocrine: Endocrine: Reports no additional endocrine complaints Hematologic/Lymphatic: Hematologic/Lymphatic: Reports no additional hematologic/lymphatic complaints Allergic/Immunologic: Allergic/Immunologic: Reports no additional allergic/immunologic complaints [facility] Past Medical History Attestation statement: The following information was validated with the patient. Source: old records reviewed and nursing notes reviewed Social History Social History Alcohol intake: never Advance Directives: No Advance Directives Information Provided: Yes Physical Exam ED Vital Signs: Vital Signs - 24 hr 03/09/24 07:39 03/09/24 09:45 Temperature 97.5 F 97.5 F Pulse Rate 97 97 Respiratory Rate 20 20 Blood Pressure 154/90 H 154/90 H Pulse Oximetry 99 99 Oxygen Delivery Method Room Air Room Air BMI result Body Mass Index 44.3 Const General: cooperative, no acute distress, alert and awake Nutritional Appearance: well nourished Orientation/consciousness: patient oriented x3 Limitations: no limitations HENMT Other: small area of erythema and swelling presnt to the central forehead - no obvious abscess Head: Yes atraumatic Ears: hearing grossly normal bilaterally and external ears normal General nose exam: Normal external nose present, no nasal discharge noted and no epistaxis Face and sinus: No abrasion and No laceration Mouth: Normal oral and palatal mucosa present, no drooling and no muffled voice Eyes General: appearance normal, both eyes and all related structures Periorbital: periorbital findings normal Eyelids: Yes eyelids normal Conjunctivae: conjunctivae normal Pupils: Equal, round and reactive pupils present EOM: EOMs intact bilaterally Neck Neck: Yes normal visual inspection, Yes full ROM and Yes no lymphadenopathy Chest Chest palpation & inspection: normal inspection of the chest Resp Effort & Inspection: normal respiratory effort and able to speak in complete sentences GI Inspection: Yes normal to inspection Neuro General: patient oriented x3 and moves all extremities Cranial nerves: Yes Equal, round and reactive pupils present Cognition (Neuro): normal cognition Extrem Other: minimal erythema and swelling along the dorsal left thumb at the base of the nail - no fluctuance General: Yes full ROM and Yes capillary refill normal Psych Appearance: grossly normal Mental Status: mental status grossly normal Affect: normal affect Attitude: cooperative Thought process: Normal thought process present Thought content: Normal thought content present Insight: Good insight present (Psych) Medical Decision Making Medical Decision Making MDM Narrative: Patient is a 43 year old assigned female at with a history of a recent BV diagnosis presenting to the emergency department today with left thumb pain, forehead pain, and BV. Patient's physical exam was as noted in the physical exam portion of this note. I explained my physical exam findings to the patient. I answered all questions asked by the patient. I stressed the importance of the patient taking her medication as directed (either prescribed or as the over the counter packaging recommends). I stressed the importance of the patient following up with her primary care provider. I stressed the importance of the patient returning to the emergency department immediately if her symptoms were to worsen or if she were to develop any dizziness, shortness of breath, difficulty breathing, chest pain, blurry vision, loss of vision, nausea, vomiting, abdominal pain, fever, chills, back pain, or any other complaints. Patient verbalized agreement and understanding with this treatment plan and discharge. Differential Diagnosis Differential Diagnoses: The differential diagnosis associated with the presentation includes Left thumb paronychia cellulitis forehead cellulitis BV Admission/Observation Consideration of admission/observation: Escalation of care including admission/observation considered Patient would have been admitted to the hospital had her clinical presentation warranted hospital admission. Prescription Management I considered prescription management with: Antibiotic (patient prescribed an antibiotic for forehead cellulitis and left thumb paronychia as well as BV ) Discharge Plan Discharge Clinical Impression: Paronychia of finger, Bacterial vaginosis, Cellulitis of forehead Patient Disposition: Home, Self-Care Instructions: Bacterial Vaginosis (ED), Paronychia (ED) Additional Instructions: Take your antibiotic as prescribed. Follow up with your primary care provider. Return to the emergency department immediately if your symptoms worsen or if you develop any dizziness, shortness of breath, difficulty breathing, chest pain, blurry vision, loss of vision, nausea, vomiting, abdominal pain, fever, chills, back pain, or any other complaints. Prescriptions: New metronidazole 500 mg tablet 500 mg PO BID 7 Days Qty: 14 0RF doxycycline hyclate 100 mg tablet 100 mg PO BID 7 Days Qty: 14 0RF cephalexin 500 mg capsule 500 mg PO Q6H 7 Days Qty: 28 0RF No Action ibuprofen 600 mg tablet 600 mg PO Q8H PRN (Reason: fever or pain) Qty: 10 0RF oseltamivir [Tamiflu] 75 mg capsule 75 mg PO BID 5 Days Qty: 10 0RF ibuprofen 600 mg tablet 600 mg PO Q6H PRN (Reason: fever or pain) Qty: 20 0RF erythromycin 5 mg/gram (0.5 %) ointment 1 appl ophthalmic (eye) TID 5 Days Qty: 3.5 0RF fluconazole 150 mg tablet 150 mg PO Q3D 0 Days Qty: 2 0RF ibuprofen 600 mg tablet 600 mg PO TID PRN (Reason: fever or pain) Qty: 20 0RF cyclobenzaprine 10 mg tablet 10 mg PO TID PRN (Reason: muscle spasm) Qty: 7 0RF emtricitabine-tenofovir (TDF) [Truvada] 200-300 mg tablet 1 tab PO DAILY 30 Days Qty: 30 0RF raltegravir 400 mg tablet 400 mg PO BID 30 Days Qty: 60 0RF fluconazole 150 mg tablet 150 mg PO QWEEK Qty: 2 0RF ondansetron 4 mg tablet,disintegrating 4 mg PO Q8H PRN (Reason: nausea and vomiting) Qty: 30 0RF lisinopril 40 mg tablet 40 mg PO DAILY 30 Days Qty: 30 0RF ibuprofen 600 mg tablet 600 mg PO Q8H PRN (Reason: pain) Qty: 30 0RF doxycycline hyclate 100 mg capsule 100 mg PO BID 7 Days Qty: 14 0RF cephalexin 500 mg tablet 500 mg PO QID 7 Days Qty: 28 0RF ibuprofen 600 mg tablet 600 mg PO Q6H PRN (Reason: pain) Qty: 20 0RF Referrals: [facility] Family Medicine [Provider Group] (Call to establish and follow up with a primary care provider. If you already have a primary care provider, please follow up with them.) [facility] [Provider Group] (Call to establish and follow up with a primary care provider. If you already have a primary care provider, please follow up with them.) [facility] Primary [facility] [Provider Group] (Call to establish and follow up with a primary care provider. If you already have a primary care provider, please follow up with them.) Stand Alone Forms: Work/School Release Interventions: ED Discharge Assessment Last Done: 03/09/24 09:45 Discharge Date/Time: 03/09/24 09:46 Print Language: Hungarian
[2024-03-09 09:45] VITALS: BP 154/90; PULSE 97; RESP 20; TEMP 36.4; O2SAT 99
== END 2024-03-09 09:46 | disposition home or self-care (01) ==
PROVIDERS: Emergency Provider Emergency Medicine Emergency Medical Services
DX: L03.012 Cellulitis of left finger (principal); L03.211 Cellulitis of face; N76.0 Acute vaginitis; Z79.899 Other long term (current) drug therapy
CPT/HCPCS: 99282; 99283

== ENCOUNTER 2025-01-23 09:12 | Emergency (ER) | payer MEDICAID, SELFPAY ==
--- OUTSIDE RECORDS SUMMARY | 2024-09-16 05:30 | XMS_ITS ---
Author Organization [facility] Address [address] [place] [id number] Care Team Providers Care Customs Consultant Name Role Phone NO, PCP Primary Care Provider [phone] Luh Davies Unavailable [phone] [facility], Nursing Unavailable [phone] REASON FOR VISIT Office: BP check/Apply new angie sensor Encounters Encounter Location Date Provider Diagnosis [address] [id number] 09/16/2024 Nursing [facility] Plan Of Treatment Next Appt Details Provider Name:Sabiha Tracy lobo, 02/01/2025 01:00:00 PM, [address] [place] [address], [phone], Progress Notes * Tree LEBLANCDOB:1980 ( 44 yo F)Acc No.[id number]:09/16/2024 Progress Notes Patient: Tree VAZ Provider: Ryan tapia [facility] :1980 A ge:44 Y S ex:Female Date:09/16/2024 Address:[address] [place], [place] [id number] Pcp:PCP NO Subjective: * Chief Complaints: * 1 . Office: BP check/Apply new angie sensor. * Medical History: Objective: * Vitals: Assessment: Plan: * Treatment: * Images: Billing Information: * Visit Code: * Procedure Codes: * Electronic signature of Ale [facility] on 01/23/2025 at 09:29 AM EST Sign off status: Pending * Provider: Ryan tapia [facility] Date: 0 09/16/2024 Generated for Printi ng/Faxing/eTransmitting on: 1 03/25/2024 09:29 AM EST
--- OUTSIDE RECORDS SUMMARY | 2024-11-14 16:00 | XMS_ITS ---
Author Organization [facility] Address [address] [place] [address] Care Team Providers Care Table Tender Name Role Phone NO, PCP Primary Care Provider Luh Davies Unavailable [phone] Migration, Provider Unavailable Unavailable Allergies Allergen (clinical drug ingredient) Drug/Non Drug Allergy documented on EMR Reaction Allergy Type Onset Date Status acetaminophen / oxycodone Percocet anaphylaxis Drug Allergy Active REASON FOR VISIT Multum To [facility] Conversion Encounter Medications Medication SIG (Take, Route, Frequency, Duration) Notes Start Date End Date Status amLODIPine Besylate 5 MG 1 tab(s) orally once a day for 90 days 08/20/2024 Active FREESTYLE PINEDA 3 GLUCOSE MONITORING SYSTEM, 1 FOR CONTINUOUS GLUCOSE MONITORING for 90 DAYS *Please review for potential replacement for e-prescription and drug interaction check* 08/20/2024 Active FREESTYLE PINEDA 3 PLUS SENSOR, 1 APPLY TOPICALLY EVERY 14 DAYS FOR CONTINUOUS GLUCOSE MONITORING for 28 DAYS *Please review for potential replacement for e-prescription and drug interaction check* 08/20/2024 Not-Taking FREESTYLE PRECISION CHONG STRIPS TO CHECK BLOOD SUGAR MANUALLY NEEDED IF FREESTYLE SENSOR FAILS OR HAS QUESTIONABLE READINGS for 30 DAYS *Please review for potential replacement for e-prescription and drug interaction check* 08/20/2024 Not-Taking 1ST TIER UNIFINE PENTIPS PEN NEEDLES, 4MM X 3, 100 FOR UDE DAILY WITH INSULIN PEN for 90 DAYS *Please review for potential replacement for e-prescription and drug interaction check* 08/20/2024 Active metroNIDAZOLE 500 MG 1 tab(s) orally twice a day for 7 days 09/15/2024 Not-Taking metroNIDAZOLE 0.75 % 1 appful intravaginally once a day (at bedtime) for 5 days 08/21/2024 Not-Taking Tirzepatide 2.5 MG/0.5 ML DIRECTED SUBCUTANEOUSLY ONCE A WEEK for 28 DAYS *Please review and pick correct strength-formula tion from [employer] options. If intended option is not shown, discontinue and re-order from Quick Search* 09/02/2024 Not-Taking Meloxicam 15 MG 1 tab(s) orally once a day for 10 days 10/16/2024 Active Doxycycline Hyclate 100 MG 1 tab(s) orally 2 times a day for 7 days 08/20/2024 Not-Taking ALCOHOL PADS 100CT USE DAILY AND NEEDED FOR CHECKING BLOOD SUGAR AND INSULIN USE for 30 DAYS *Please review for potential replacement for e-prescription and drug interaction check* 08/20/2024 Active ACCU-CHEK LANCET, 100 FOR CHECKIN BLOOD SUGAR DAILY AND NEEDED for 90 DAYS *Please review for potential replacement for e-prescription and drug interaction check* 08/20/2024 Not-Taking ACCU-CHEK MULTICLIX LANCET DEVICE, 1 CHECK BLOOD SUGAR DAILY AND NEEDED for 90 DAYS *Please review for potential replacement for e-prescription and drug interaction check* 08/20/2024 Not-Taking Olmesartan Medoxomil 20 MG 1 tab(s) orally once a day for 90 days 08/20/2024 Active Lantus SoloStar 100 UNIT/ML 15 units subcutaneously daily for 30 days 08/20/2024 Active Encounters Encounter Location Date Provider Diagnosis [address] [address] 11/14/2024 Provider Migration Radiculopathy, lumbar region M54.16 Assessments Encounter Date Diagnosis (ICD Code) Assessment Notes Treatment Notes Treatment Clinical Notes Section Notes 11/14/2024 Radiculopathy, lumbar region (ICD-10 - M54.16) Plan Of Treatment Medication Medication Name Sig Start Date Stop Date Notes Meloxicam 15 MG 1 tab(s) orally once a day for 10 days Next Appt Details Provider Name:Sabiha diamond, 02/01/2025 01:00:00 PM, [address] [place] [address], [phone], Progress Notes * Archie LEBLANC:1980 ( 44 yo F)Acc No.[id number]:11/14/2024 Patient: Tree VZA Provider: :1980 A ge:44 Y S ex:Female Date:11/14/2024 Address:[address] [place], [place] [id number] Pcp:PCP NO Subjective: * Chief Complaints: * 1 . Multum To Med[facility] Conversion Encounter. * Medical History: * Medications: T aking amLODIPine Besylate 5 MG Tablet 1 tab(s) orally once a day , Taking FREESTYLE PINEDA 3 GLUCOSE MONITORING SYSTEM, 1 FOR CONTINUOUS GLUCOSE MONITORING , Notes to Pharmacist: *Please review for potential replacement for e-prescription and drug interaction check*, Taking 1ST TIER UNIFINE PENTIPS PEN NEEDLES, 4MM X 3, 100 FOR UDE DAILY WITH INSULIN PEN , Notes to Pharmacist: *Please review for potential replacement for e-prescription and drug interaction check*, Taking Olmesartan Medoxomil 20 MG Tablet 1 tab(s) orally once a day , Taking Lantus SoloStar 100 UNIT/ML Solution Pen-injector 15 units subcutaneously daily , Taking ALCOHOL PADS 100CT USE DAILY AND NEEDED FOR CHECKING BLOOD SUGAR AND INSULIN USE , Notes to Pharmacist: *Please review for potential replacement for e-prescription and drug interaction check*, Not-Taking/PRN metroNIDAZOLE 500 MG Tablet 1 tab(s) orally twice a day , Not-Taking/PRN FREESTYLE PINEDA 3 PLUS SENSOR, 1 APPLY TOPICALLY EVERY 14 DAYS FOR CONTINUOUS GLUCOSE MONITORING , Notes to Pharmacist: *Please review for potential replacement for e-prescription and drug interaction check*, Not-Taking/PRN FREESTYLE PRECISION CHONG STRIPS TO CHECK BLOOD SUGAR MANUALLY NEEDED IF FREESTYLE SENSOR FAILS OR HAS QUESTIONABLE READINGS , Notes to Pharmacist: *Please review for potential replacement for e-prescription and drug interaction check*, Not- Taking/PRN ACCU-CHEK LANCET, 100 FOR CHECKIN BLOOD SUGAR DAILY AND NEEDED , Notes to Pharmacist: *Please review for potential replacement for e-prescription and drug interaction check*, Not-Taking/PRN ACCU-CHEK MULTICLIX LANCET DEVICE, 1 CHECK BLOOD SUGAR DAILY AND NEEDED , Notes to Pharmacist: *Please review for potential replacement for e-prescription and drug interaction check*, Not-Taking/PRN metroNIDAZOLE 0.75 % Gel 1 appful intravaginally once a day (at bedtime) , Not-Taking/PRN Tirzepatide 2.5 MG/0.5 ML SOLUTION DIRECTED SUBCUTANEOUSLY ONCE A WEEK , Notes to Pharmacist: *Please review and pick correct strength-formulation from Medispan options. If intended option is not shown, discontinue and re-order from Quick Search*, Not-Taking/PRN Doxycycline Hyclate 100 MG Tablet 1 tab(s) orally 2 times a day * Allergies: P ercocet: anaphylaxis - Allergy. Objective: * Vitals: Assessment: * Assessment: 1. R adiculopathy, lumbar region - M54.16 (Primary) Plan: * Treatment: * Images: Billing Information: * Visit Code: * Procedure Codes: * Electronic signature of Prov ider Migration on 01/23/2025 at 09:29 AM EST Sign off status: Pending * Provider: Date: 0 11/14/2024 Generated for Shon ramirez/Lissa/Waleitting on: 03/25/2024 09:29 AM EST
--- OUTSIDE RECORDS SUMMARY | 2024-11-25 06:00 | XMS_ITS ---
Author Organization [facility] Address [address] [place] [address] Care Team Providers Care Vault Clerk Name Role Phone NO, PCP Primary Care Provider Luh Davies Unavailable [phone] Sabiha Hoover Unavailable [phone] Allergies Allergen (clinical drug ingredient) Drug/Non Drug Allergy documented on EMR Reaction Allergy Type Onset Date Status acetaminophen / oxycodone Percocet anaphylaxis Drug Allergy Active REASON FOR VISIT Office; 3 month chronic Care, start on statin; send for mammo and pap Medications Medication SIG (Take, Route, Frequency, Duration) Notes Start Date End Date Status metroNIDAZOLE 0.75 % 1 appful intravaginally once a day (at bedtime) for 5 days 08/21/2024 Not-Taking ALCOHOL PADS 100CT USE DAILY AND NEEDED FOR CHECKING BLOOD SUGAR AND INSULIN USE for 30 DAYS *Please review for potential replacement for e-prescription and drug interaction check* 08/20/2024 Active Lantus SoloStar 100 UNIT/ML 15 units subcutaneously daily for 30 days 08/20/2024 Active Doxycycline Hyclate 100 MG 1 tab(s) orally 2 times a day for 7 days 08/20/2024 Not-Taking Tirzepatide 2.5 MG/0.5 ML DIRECTED SUBCUTANEOUSLY ONCE A WEEK for 28 DAYS *Please review and pick correct strength-formula tion from Medispan options. If intended option is not shown, discontinue and re-order from Quick Search* 09/02/2024 Not-Taking Olmesartan Medoxomil 20 MG 1 tab(s) orally once a day for 90 days 08/20/2024 Active ACCU-CHEK MULTICLIX LANCET DEVICE, 1 CHECK BLOOD SUGAR DAILY AND NEEDED for 90 DAYS *Please review for potential replacement for e-prescription and drug interaction check* 08/20/2024 Not-Taking ACCU-CHEK LANCET, 100 FOR CHECKIN BLOOD SUGAR DAILY AND NEEDED for 90 DAYS *Please review for potential replacement for e-prescription and drug interaction check* 08/20/2024 Not-Taking 1ST TIER UNIFINE PENTIPS PEN NEEDLES, 4MM X 3, 100 FOR UDE DAILY WITH INSULIN PEN for 90 DAYS *Please review for potential replacement for e-prescription and drug interaction check* 08/20/2024 Active FREESTYLE PRECISION CHONG STRIPS TO CHECK BLOOD SUGAR MANUALLY NEEDED IF FREESTYLE SENSOR FAILS OR HAS QUESTIONABLE READINGS for 30 DAYS *Please review for potential replacement for e-prescription and drug interaction check* 08/20/2024 Not-Taking metroNIDAZOLE 500 MG 1 tab(s) orally twice a day for 7 days 09/15/2024 Not-Taking Meloxicam 15 MG 1 tab(s) orally once a day for 10 days 10/16/2024 Active FREESTYLE PINEDA 3 PLUS SENSOR, 1 APPLY TOPICALLY EVERY 14 DAYS FOR CONTINUOUS GLUCOSE MONITORING for 28 DAYS *Please review for potential replacement for e-prescription and drug interaction check* 08/20/2024 Not-Taking FREESTYLE PINEDA 3 GLUCOSE MONITORING SYSTEM, 1 FOR CONTINUOUS GLUCOSE MONITORING for 90 DAYS *Please review for potential replacement for e-prescription and drug interaction check* 08/20/2024 Active amLODIPine Besylate 5 MG 1 tab(s) orally once a day for 90 days 08/20/2024 Active Encounters Encounter Location Date Provider Diagnosis [address] [address] 11/25/2024 Sabiha Hoover Encounter for screening for COVID-19 Z11.52 Assessments Encounter Date Diagnosis (ICD Code) Assessment Notes Treatment Notes Treatment Clinical Notes Section Notes 11/25/2024 Encounter for screening for COVID-19 (ICD-10 - Z11.52) Covid screening is negative. Discussed in detail with patient how to practice social distancing by avoiding public spaces and crowds now, wearing a mask in public to keep nose and mouth covered, and washing hands frequently especially before eating and after using the bathroom. Return to clinic if you develop any symtpoms of concern to be rescreened or go to the emergency room if you are having concerning symptoms for COVID-19. 11/25/2024 Other Plan Of Treatment Treatment Notes Assessment Notes Encounter for screening for COVID-19 Cov id screening is negative. Discussed in detail with patient how to practice social distancing by avoiding public spaces and crowds now, wearing a mask in public to keep nose and mouth covered, and washing hands frequently especially before eating and after using the bathroom. Return to clinic if you develop any symtpoms of concern to be rescreened or go to the emergency room if you are having concerning symptoms for COVID-19. Next Appt Details Provider Name:Sabiha diamond, 02/01/2025 01:00:00 PM, [address] [place] [address], [phone], Progress Notes * Tree LEBLANCDOB:1980 ( 44 yo F)Acc No.[id number]:11/25/2024 Progress Notes Patient: Tree VAZ Provider: HERMELINDO Zhang :1980 A ge:44 Y S ex:Female Date:11/25/2024 Address:[address] [place] [address] Pcp:PCP NO Subjective: * Chief Complaints: * 1 . Office; 3 month chronic Care. 2. Start on statin; send for mammo and pap. * HPI: G eneral: Symptom Screen: - Fever in the last 1 week? Patient denies - New or worsening cough in the last 1 week? Patient denies. - Contact will known COVID exposure in last 5 days? Patient denies -new rash within last 3 weeks? Patient denies - Have you received the COVID-19 vaccine? - Have you received COVID-19 booster? - Have you been tested positive for COVID -19 in the last 7 days? If so where and why? RN/MA:. * ROS: N o acute C/P no acute SOB, No problem with urine, No heartburn or abdominal pain. Endorses being able to climb one fight of stairs without stopping due to SOB, Mood: stable, appetite: good, sleeping well. Denies new skin rashes. * Medical History: * Medications: T aking Meloxicam 15 MG Tablet 1 tab(s) orally once a day , Taking amLODIPine Besylate 5 MG Tablet 1 tab(s) [...] e-prescription and drug interaction check*, Not-Taking/PRN ACCU-CHEK LANCET, 100 FOR CHECKIN BLOOD SUGAR DAILY AND NEEDED , Notes to Pharmacist: *Please review for potential replacement for e-prescription and drug interaction check*, Not- Taking/PRN ACCU-CHEK MULTICLIX LANCET DEVICE, 1 CHECK BLOOD [...] Objective: * Vitals: Assessment: * Assessment: 1. E ncounter for screening for COVID-19 - Z11.52 (Primary) Plan: * Treatment: * Images: Billing Information: * Visit Code: * Procedure Codes: Care Plan Details* * Electronic signature of Giancarlo Hoover on 01/23/2025 at 09:30 AM EST Sign off status: Pending * Provider: HERMELINDO Zhang Date: 0 11/25/2024 Generated for Shon ramirez/Lissa/Waleitting on: 1 03/25/2024 09:30 AM EST
--- OUTSIDE RECORDS SUMMARY | 2024-12-24 08:30 | XMS_ITS ---
Author Organization [facility] Address [address] [place] [id number] Care Team Providers Care Library Specialist Name Role Phone NO, PCP Primary Care Provider [phone] Luh Davies Unavailable [phone] Sabiha Hoover Unavailable [phone] Allergies Allergen (clinical drug ingredient) Drug/Non Drug Allergy documented on EMR Reaction Allergy Type Onset Date Status acetaminophen / oxycodone Percocet anaphylaxis Drug Allergy Active REASON FOR VISIT Office; 3 month chronic Care rescheduled Encounters Encounter Location Date Provider Diagnosis [facility] [address] [place] [address] 12/24/2024 Eddidileepza Casionan Encounter for screening for COVID-19 Z11.52 Assessments Encounter Date Diagnosis (ICD Code) Assessment Notes Treatment Notes Treatment Clinical Notes Section Notes 12/24/2024 Encounter for screening for COVID-19 (ICD-10 - [...] you are having concerning symptoms for COVID-19. 12/24/2024 Other Plan Of Treatment Treatment Notes Assessment [...] symptoms for COVID-19. Next Appt Details Provider Name:Bartjordan diamond, 02/01/2025 01:00:00 PM, [address] [place] [address], [phone], Progress Notes * Tree LEBLANCDOB:1980 ( 44 yo F)Acc No.[id number]:12/24/2024 Progress Notes Patient: Tree VAZ Provider: HERMELINDO Zhang :1980 A ge:44 Y S ex:Female Date:12/24/2024 Address:[address] [place], [place] [id number] Pcp:PCP NO Subjective: * Chief Complaints: * 1 . Office; 3 month chronic Care rescheduled. * HPI: G eneral: Symptom Screen: - [...] new skin rashes. * Medical History: * Allergies: P ercocet: anaphylaxis - Allergy. Objective: * Vitals: Assessment: * Assessment: 1. E ncounter for screening for COVID-19 - Z11.52 (Primary) Plan: * Treatment: * Images: Billing Information: * Visit Code: * Procedure Codes: Care Plan Details* * Electronic signature of Giancarlo Hoover on 01/23/2025 at 09:29 AM EST Sign off status: Pending * Provider: HERMELINDO Zhang Date: 1 Generated for Shon ramirez/Lissa/Jayesh on: 1 03/25/2024 09:29 AM EST
[2025-01-23 09:13] VITALS: BP 218/134; PULSE 88; RESP 16; TEMP 36.1; O2SAT 97; BMI 45.2
--- NOTE | 2025-01-23 09:19 | ED_ITS ---
HPI - General Adult General Chief complaint: Skin/Abscess/Foreign Body Stated complaint: infection in head Time Seen by Provider: 01/23/25 09:15 Source: patient Mode of arrival: ambulatory Limitations: no limitations History of Present Illness ED Provider: Renee Quinteros PA-C HPI narrative: Patient is a 44 year old assigned female at with a history of MRSA and HTN - not currently taking medication as prescribed presenting to the emergency department today with lumps on her scalp and vaginal discharge. Patient states that over the last 2 days she has had lumps on her scalp that are painful to the touch. Patient states that she is also having vaginal discharge. Patient states that she was seen by her PCP for the vaginal discharge, tested positive for BV, and took the medication but the discharge continues and now there is itchiness in the vaginal area. Patient states that she does not want to be re-tested for BV or anything else - just treated. Patient denies any other complaints at this time. Related Data Previous Rx's ?Medication ?Instructions ?Recorded ibuprofen 600 mg tablet 600 mg PO Q8H PRN fever or p ain 08/04/22 #10 tabs cyclobenzaprine 10 mg tablet 10 mg PO TID PRN muscle s pasm #7 09/01/22 tabs ibuprofen 600 mg tablet 600 mg PO TID PRN fever or p ain 09/01/22 #20 tabs ibuprofen 600 mg tablet 600 mg PO Q6H PRN fever or p ain 02/26/23 #20 tabs oseltamivir 75 mg capsule (Tamiflu) 75 mg PO BID 5 day s #10 caps 02/26/23 emtricitabine 200 mg-tenofovir 1 tab PO DAILY 30 days #30 tabs 04/01/23 disoproxil fumarate 300 mg tablet (Truvada) fluconazole 150 mg tablet 150 mg PO QWEEK 2 doses #2 t abs 04/01/23 lisinopril 40 mg tablet 40 mg PO DAILY 30 days #30 t abs 04/01/23 ondansetron 4 mg disintegrating 4 mg PO Q8H PRN nausea and 04/01/23 tablet vomiting #30 tabs raltegravir 400 mg tablet 400 mg PO BID 30 days #60 ta bs 04/01/23 erythromycin 5 mg/gram (0.5 %) eye 1 appl ophthalmic ( eye) TID 5 days 04/06/24 ointment #3.5 grams fluconazole 150 mg tablet 150 mg PO Q3D 2 doses #2 tab s 06/08/23 ibuprofen 600 mg tablet 600 mg PO Q8H PRN pain #30 t abs 09/20/23 cephalexin 500 mg tablet 500 mg PO QID 7 days #28 tab s 10/02/23 doxycycline hyclate 100 mg capsule 100 mg PO BID 7 day s #14 caps 10/02/23 ibuprofen 600 mg tablet 600 mg PO Q6H PRN pain #20 t abs 10/02/23 cephalexin 500 mg capsule 500 mg PO Q6H 7 days #28 cap s 03/09/24 doxycycline hyclate 100 mg tablet 100 mg PO BID 7 days #14 tabs 03/09/24 metronidazole 500 mg tablet 500 mg PO BID 7 days #14 t abs 03/09/24 cephalexin 500 mg capsule 500 mg PO Q6H 7 days #28 cap s 01/23/25 doxycycline hyclate 100 mg tablet 100 mg PO BID 7 days #14 tabs 01/23/25 fluconazole 150 mg tablet 150 mg PO Q3D 2 doses #2 tab s 01/23/25 metronidazole 500 mg tablet 500 mg PO BID 7 days #14 t abs 01/23/25 Allergies Allergy/AdvReac Type Severity Reaction Status Date / Time oxycodone (From Percocet) Allergy Intermediate Difficulty Verified 01/23/25 09:15 Breathing Review of Systems 2 Constitutional: Constitutional: Reports as per HPI Eyes: Eyes: Reports as per HPI ENT: Reports as per HPI Cardiovascular: Cardiovascular: Reports as per HPI Respiratory: Respiratory: Reports as per HPI Gastrointestinal: Gastrointestinal: Reports as per HPI Genitourinary: Genitourinary: Reports as per HPI Musculoskeletal: Musculoskeletal: Reports as per HPI Integumentary/Breasts: Skin/Breast: Reports as per HPI Neurologic: Reports as per HPI Psychiatric: Psychiatric: Reports as per HPI Endocrine: Endocrine: Reports as per HPI Hematologic/Lymphatic: Hematologic/Lymphatic: Reports as per HPI Allergic/Immunologic: Allergic/Immunologic: Reports as per HPI PMF Past Medical History Attestation statement: The following information was validated with the patient. Source: old records reviewed and nursing notes reviewed Social History Social History Alcohol intake: never Advance Directives: No Advance Directives Information Provided: No Physical Exam ED Vital Signs: Vital Signs - 24 hr 01/23/25 09:13 01/23/25 09:43 Temperature 97 F Pulse Rate 88 Respiratory Rate 16 Blood Pressure 218/134 H 177/85 H Pulse Oximetry 97 Oxygen Delivery Method Room Air BMI result Body Mass Index 45.2 Const General: cooperative, no acute distress, alert and awake Nutritional Appearance: well nourished Orientation/consciousness: patient oriented x3 HENMT Other: Head: Yes atraumatic Ears: hearing grossly normal bilaterally and external ears normal General nose exam: Normal external nose present, no nasal discharge noted and no epistaxis Face and sinus: Yes normal facial exam, No abrasion and No laceration Mouth: Normal oral and palatal mucosa present, no drooling and no muffled voice Eyes General: appearance normal, both eyes and all related structures Periorbital: periorbital findings normal Eyelids: Yes eyelids normal Conjunctivae: conjunctivae normal Pupils: Equal, round and reactive pupils present EOM: EOMs intact bilaterally Neck Neck: Yes normal visual inspection and Yes full ROM Resp Effort & Inspection: normal respiratory effort and able to speak in complete sentences Neuro General: patient oriented x3, moves all extremities and CN's II-XI intact bilaterally Cranial nerves: Yes Equal, round and reactive pupils present Cognition (Neuro): normal cognition Extrem General: Yes normal to inspection, Yes full ROM and Yes capillary refill normal Psych Appearance: grossly normal Mental Status: mental status grossly normal Affect: normal affect Attitude: cooperative Thought process: Normal thought process present Thought content: Normal thought content present Insight: Good insight present (Psych) Medical Decision Making Medical Decision Making MDM Narrative: Patient is a 44 year old assigned female at with a history of MRSA and HTN - not currently taking medication as prescribed presenting to the emergency department today with lumps on her scalp and vaginal discharge. Patient's physical exam was as noted in the physical exam portion of this note. Patient had 2 additional, smaller, lumps to the posterior aspect of the scalp. No fluctuance of any of the lumps - actively draining. Patient declined vaginal examination or testing. Patient's clinical presentation is most consistent with already draining abscesses + cellulitis and vaginal discharge. I explained my physical exam findings to the patient. I answered all questions asked by the patient. I explained to the patient that given she is declining a vaginal examination or testing of her discharge - I will treat her for both BV and Yeast. I also explained to the patient that her scalp lesions do not need further opened, to allow them to continue draining, and take her antibiotic for those as prescribed. I stressed the importance of the patient taking her medication as directed (either prescribed or as the over the counter packaging recommends). I stressed the importance of the patient following up with her primary care provider. I stressed the importance of the patient returning to the emergency department immediately if her symptoms were to worsen or if she were to develop any dizziness, shortness of breath, difficulty breathing, chest pain, blurry vision, loss of vision, nausea, vomiting, abdominal pain, fever, chills, back pain, or any other complaints. Patient verbalized agreement and understanding with this treatment plan and discharge. Differential Diagnosis Differential Diagnoses: The differential diagnosis associated with the presentation includes Scalp lesions Scalp cellulitis Scalp abscess Vaginal discharge BV Vaginal yeast infection Admission/Observation Consideration of admission/observation: Escalation of care including admission/observation considered Patient would have been admitted to the hospital had her clinical presentation warranted hospital admission. Prescription Management I considered prescription management with: Antibiotic (patient prescribed antibiotics for possible BV and scalp cellulitis / abscesses) and Other (patient prescribed antifungal for probable vaginal yeast. ) Chronic Conditions Patient?s care impacted by: Hypertension (currently untreated) Discharge Plan Discharge Clinical Impression: Cellulitis, Vaginal discharge Patient Disposition: Home, Self-Care Instructions: Cellulitis (ED), Vaginal Discharge (ED), Warm Compress or Soak (ED) Additional Instructions: Your examination is consistent with 3 small, already open, abscesses of your scalp. These are already open and draining - therefore you do not need to have them incised / drained manually. You also stated you are having vaginal discharge and were diagnosed with BV elsewhere but still continue to need treatment. I have prescribed you an antibiotic for this. Take your antibiotics as prescribed. IF you are prescribed home medications and/or you are taking over the counter medications at home - it is very important you continue to do so as prescribed / directed unless told otherwise by a healthcare provider. Follow up with your primary care provider. Do your best to stay well hydrated and rest. Return to the emergency department immediately if your symptoms worsen or if you develop any numbness, tingling, dizziness, shortness of breath, difficulty breathing, chest pain, blurry vision, loss of vision, nausea, vomiting, abdominal pain, fever, chills, back pain, or any other complaints. L If you do not have a primary care provider - call any of the below numbers to establish and follow up with a primary care provider. [facility] Primary Care ([place]) [phone] [place] [address] [place], [address] [facility] Primary Care ([address] [place]) [phone] [address] [facility], [address] [place], [address] [facility] Primary Care ([address] [place]) [phone] [place] [address], [address] [facility], [address] [facility] Primary Care ([place]) [phone] [place] [address] [address] [facility], [address] [facility] Family Medicine [phone] [address] [facility], [address] Please see the information below about our Patient Portal. If you are not yet enrolled in the [facility] Patient Portal, you will receive an enrollment email invitation following your visit to any [facility] setting. You may also self-enroll in the Patient Portal by visiting our website: [email or web address] The following information is required to access the Patient Portal: - Your [facility] Medical Record Number - Your personal home email address (must match what is in your electronic medical record, Registration staff can assist with this) - Name - Date of Capabilities of the Patient Portal: - Message some providers - View upcoming appointments - Access your health summary, medical history, and visit history - View current conditions and allergies - View procedure and lab results - View your medications, including guidelines, side effects, and precautions - Complete pre-appointment questionnaires requested by your provider - Ready summary reports of your office visits and procedures To access the Patient Portal Mobile [employer], follow these directions: - Search [employer] in the [employer] Store or [employer] Store - Download the Joseph - Search for [facility] - Enter your login/password Prescriptions: New fluconazole 150 mg tablet 150 mg PO Q3D Qty: 2 0RF metronidazole 500 mg tablet 500 mg PO BID 7 Days Qty: 14 0RF cephalexin 500 mg capsule 500 mg PO Q6H 7 Days Qty: 28 0RF doxycycline hyclate 100 mg tablet 100 mg PO BID 7 Days Qty: 14 0RF No Action ibuprofen 600 mg tablet 600 mg PO Q8H PRN (Reason: fever or pain) Qty: 10 0RF oseltamivir [Tamiflu] 75 mg capsule 75 mg PO BID 5 Days Qty: 10 0RF ibuprofen 600 mg tablet 600 mg PO Q6H PRN (Reason: fever or pain) Qty: 20 0RF erythromycin 5 mg/gram (0.5 %) ointment 1 appl ophthalmic (eye) TID 5 Days Qty: 3.5 0RF fluconazole 150 mg tablet 150 mg PO Q3D 0 Days Qty: 2 0RF metronidazole 500 mg tablet 500 mg PO BID 7 Days Qty: 14 0RF doxycycline hyclate 100 mg tablet 100 mg PO BID 7 Days Qty: 14 0RF cephalexin 500 mg capsule 500 mg PO Q6H 7 Days Qty: 28 0RF ibuprofen 600 mg tablet 600 mg PO TID PRN (Reason: fever or pain) Qty: 20 0RF cyclobenzaprine 10 mg tablet 10 mg PO TID PRN (Reason: muscle spasm) Qty: 7 0RF emtricitabine-tenofovir (TDF) [Truvada] 200-300 mg tablet 1 tab PO DAILY 30 Days Qty: 30 0RF raltegravir 400 mg tablet 400 mg PO BID 30 Days Qty: 60 0RF fluconazole 150 mg tablet 150 mg PO QWEEK Qty: 2 0RF ondansetron 4 mg tablet,disintegrating 4 mg PO Q8H PRN (Reason: nausea and vomiting) Qty: 30 0RF lisinopril 40 mg tablet 40 mg PO DAILY 30 Days Qty: 30 0RF ibuprofen 600 mg tablet 600 mg PO Q8H PRN (Reason: pain) Qty: 30 0RF doxycycline hyclate 100 mg capsule 100 mg PO BID 7 Days Qty: 14 0RF cephalexin 500 mg tablet 500 mg PO QID 7 Days Qty: 28 0RF ibuprofen 600 mg tablet 600 mg PO Q6H PRN (Reason: pain) Qty: 20 0RF Interventions: ED Discharge Assessment Last Done: 01/23/25 09:50 Print Language: Bulgarian
--- OUTSIDE RECORDS SUMMARY | 2025-01-23 09:30 | XMS_ITS | Encounter Summary ---
Author Organization [facility] Address [address] [place] [address] Care Team Providers Care Director Of Audiology Name Role Phone Physician, Pcp Unknown Primary Care Provider Guillermina vailable Encounter Details Date Type Department Care Team (Late st Contact Info) Description 08/20/[address] [facility] - Main Lab [address] [facility] [place] [address] Sabiha Hoover NP [address] [place] [address] Pruritus vulvae Social History Tobacco Use Types Packs/Day Years Used Date Smoking Tobacco: Never Assessed Comments Unknown Sex and Gender Information Value Date Recorded Sex Assigned at Not on file Legal Sex Female 12:58 AM EST Gender Identity Not on file Sexual Orientation Not on file documented as of this encounter Plan of Treatment Not on file documented as of this encounter Procedures Procedure Name Priority Date/Time Associated Diagnosis Comments VAGINITIS PATHOGENS BY PCR Routine 08/20/2024 11:32 AM EDT Pruritus vulvae documented in this encounter Results * (ABNORMAL) Vaginitis pathogens molecular study (08/20/2024 11:32 AM EDT) Trichomonas vaginalis Negative Negative 08/21/2024 1:35 PM EDT [facility] Gardnerella vaginalis Positive(A) Negative 08/21/2024 1:35 PM EDT [facility] Gale Species Negative Negative 1:35 PM EDT [facility] Swab Vaginal structure / Unknown 08/20/2024 11:32 AM EDT 08/20/2024 4:31 PM EDT us Sabiha Hoover NP LAB MICROBIOLOGY - GENERAL ORDERABLES Final Result [facility] [address] [place] [address], documented in this encounter Visit Diagnoses Diagnosis Pruritus vulvae Pruritus of genital organs documented in this encounter Care Teams Director Of Audiology Relationship Specialty Start Date End Date Physician, Pcp Unknown PCP - General 09/10/24 documented as of this encounter
--- OUTSIDE RECORDS SUMMARY | 2025-01-23 09:30 | XMS_ITS | Encounter Summary ---
Author Organization [facility] Address [address] [place] [address] Care Team Providers Care Legal Editor Name Role Phone Physician, Pcp Unknown Primary Care Provider Guillermina vailable Encounter Details Date Type Department Care Team (Late st Contact Info) Description 08/19/2024 Lab Requisition [facility] - Main Lab [address] [facility] [place] [address] Sabiha Hoover NP [address] [place] [address] Encounter for screening for cardiovascular disorders; Encounter for screening for infections with a predominantly sexual mode of transmission; Encounter for screening for infectious and parasitic diseases, unspecified; Encounter for screening for other suspected endocrine disorder Social History Tobacco Use Types Packs/Day Years [...] Procedure Name Priority Date/Time Associated Diagnosis Comments HEPATITIS C ANTIBODY Routine 08/19/2024 10:27 AM EDT Encounter for screening for cardiovascular disorders Encounter for screening for infections with a predominantly sexual mode of transmission Encounter for screening for infectious and parasitic diseases, unspecified Encounter for screening for other suspected endocrine disorder HIV 1, 2 ANTIBODY, P24 ANTIGEN WITH REFLEX TO DIFFERENTIATION Routine 08/19/2024 10:27 AM EDT Encounter for screening for cardiovascular disorders Encounter for screening for infections with a predominantly sexual mode of transmission Encounter for screening for infectious and parasitic diseases, unspecified Encounter for screening for other suspected endocrine disorder HEPATITIS B SURFACE ANTIGEN WITH CONFIRMATION Routine 08/19/2024 10:27 AM EDT Encounter for screening for cardiovascular disorders Encounter for screening for infections with a predominantly sexual mode of transmission Encounter for screening for infectious and parasitic diseases, unspecified Encounter for screening for other suspected endocrine disorder TREPONEMA PALLIDUM ANTIBODY WITH REFLEX TO RPR AND PARTICLE AGGLUTINATION Routine 08/19/2024 10:27 AM EDT Encounter for screening for cardiovascular disorders Encounter for screening for infections with a predominantly sexual mode of transmission Encounter for screening for infectious and parasitic diseases, unspecified Encounter for screening for other suspected endocrine disorder THYROID STIMULATING HORMONE WITH REFLEX TO FREE T4 AND FREE T3 Routine 08/19/2024 10:27 AM EDT Encounter for screening for cardiovascular disorders Encounter for screening for infections with a predominantly sexual mode of transmission Encounter for screening for infectious and parasitic diseases, unspecified Encounter for screening for other suspected endocrine disorder SST - GOLD Routine 08/19/2024 10:27 AM EDT Encounter for screening for cardiovascular disorders Encounter for screening for infections with a predominantly sexual mode of transmission Encounter for screening for infectious and parasitic diseases, unspecified Encounter for screening for other suspected endocrine disorder SST - GOLD Routine 08/19/2024 10:27 AM EDT Encounter for screening for cardiovascular disorders Encounter for screening for infections with a predominantly sexual mode of transmission Encounter for screening for infectious and parasitic diseases, unspecified Encounter for screening for other suspected endocrine disorder LIPID PANEL WITH REFLEX TO DIRECT LDL Routine 08/19/2024 10:27 AM EDT Encounter for screening for cardiovascular disorders Encounter for screening for infections with a predominantly sexual mode of transmission Encounter for screening for infectious and parasitic diseases, unspecified Encounter for screening for other suspected endocrine disorder MICROALBUMIN CREATININE URINE RATIO Routine 08/19/2024 10:27 AM EDT Encounter for screening for cardiovascular disorders Encounter for screening for infections with a predominantly sexual mode of transmission Encounter for screening for infectious and parasitic diseases, unspecified Encounter for screening for other suspected endocrine disorder CHLAMYDIA TRACHOMATIS AND NEISSERIA GONORRHOEAE PCR Routine 08/19/2024 10:27 AM EDT Encounter for screening for cardiovascular disorders Encounter for screening for infections with a predominantly sexual mode of transmission Encounter for screening for infectious and parasitic diseases, unspecified Encounter for screening for other suspected endocrine disorder HEPATITIS B CORE ANTIBODY, TOTAL Routine 08/19/2024 10:27 AM EDT Encounter for screening for cardiovascular disorders Encounter for screening for infections with a predominantly sexual mode of transmission Encounter for screening for infectious and parasitic diseases, unspecified Encounter for screening for other suspected endocrine disorder HEPATITIS B SURFACE ANTIBODY Routine 08/19/2024 10:27 AM EDT Encounter for screening for cardiovascular disorders Encounter for screening for infections with a predominantly sexual mode of transmission Encounter for screening for infectious and parasitic diseases, unspecified Encounter for screening for other suspected endocrine disorder COMPLETE BLOOD COUNT Routine 08/19/2024 10:27 AM EDT Encounter for screening for cardiovascular disorders Encounter for screening for infections with a predominantly sexual mode of transmission Encounter for screening for infectious and parasitic diseases, unspecified Encounter for screening for other suspected endocrine disorder HEMOGLOBIN A1C Routine 08/19/2024 10:27 AM EDT Encounter for screening for cardiovascular disorders Encounter for screening for infections with a predominantly sexual mode of transmission Encounter for screening for infectious and parasitic diseases, unspecified Encounter for screening for other suspected endocrine disorder COMPREHENSIVE METABOLIC PANEL Routine 08/19/2024 10:27 AM EDT Encounter for screening for cardiovascular disorders Encounter for screening for infections with a predominantly sexual mode of transmission Encounter for screening for infectious and parasitic diseases, unspecified Encounter for screening for other suspected endocrine disorder documented in this encounter Results * SST tube (08/19/2024 10:27 AM EDT) Extra Tube Hold for add-ons. 08/19/2024 8:[address] [facility] Comment:Auto resulted. Blood Venous blood specimen / Unknown 08/19/2024 10:27 AM EDT 08/19/2024 6:23 PM EDT Eddieliza Casionan [employer] LAB BLOOD ORDERABLES Final Result Performing Organization Address [facility]/ZIP Co de Phone Number [facility] [address] [place] [address], [place] [phone] * SST tube (08/19/2024 10:27 AM EDT) [facility] Extra Tube Hold for add-ons. 08/19/2024 8:[address] [facility] Comment:Auto resulted. Blood Venous blood specimen / Unknown 08/19/2024 10:27 AM EDT 08/19/2024 6:23 PM EDT [facility] BLOOD ORDERABLES Final Result Performing Organization Address [facility] Co de Phone Number [facility] [address] [place] [address], * (ABNORMAL) Hemoglobin A1c (08/19/2024 10:27 AM EDT) [facility] Hemoglobin A1C 14.5(H) <6.5 % LAB CHEMISTRY METHOD 08/19/2024 8:[address] [facility] Mean Bld Glu Estim. 369 mg/dL LAB CHEMISTRY METHOD 08/19/2024 8:[address] [facility] Blood Venous blood specimen / Unknown 08/19/2024 10:27 AM EDT 08/19/2024 6:23 PM EDT [facility] LAB BLOOD ORDERABLES Final Result Performing Organization Address [facility]/ZIP Co de Phone Number [facility] [address] [place] [address], [place] [phone] * Hepatitis C antibody (08/19/2024 10:27 AM EDT) [facility] Hepatitis C Antibody Negative Negative LAB CHEMISTRY METHOD 08/19/2024 7:[address] [facility] Blood Venous blood specimen / Unknown 08/19/2024 10:27 AM EDT 08/19/2024 6:23 PM EDT [facility] BLOOD ORDERABLES Final Result Performing Organization Address City/[facility]/ZIP Co de Phone Number [facility] [address] [place] [address], [place] [phone] * Treponema pallidum antibody with reflex to RPR and particle agglutination (08/19/2024 10:27 AM EDT) Pathologist [facility] T. Pallidum Antibodies Negative Negative LAB CHEMISTRY METHOD 08/19/2024 7:[address] [facility] Blood Venous blood specimen / Unknown 08/19/2024 10:27 AM EDT 08/19/2024 6:23 PM EDT Bartdilizzy Hoover [employer] LAB BLOOD ORDERABLES Final Result Performing Organization Address City/[facility]/ZIP Co de Phone Number [facility] [address] [place] [address], [place] [phone] * (ABNORMAL) Comprehensive metabolic panel (08/19/2024 10:27 AM EDT) Pathologist [facility] Sodium 136 133 - 145 mmol/L LAB CHEMISTRY METHOD 08/19/2024 6:[address] [facility] Potassium 4.7 3.5 - 5.5 mmol/L LAB CHEMISTRY METHOD 08/19/2024 6:[address] [facility] Chloride 104 96 - 110 mmol/L LAB CHEMISTRY METHOD 08/19/2024 6:[address] [facility] CO2 23 21 - 32 mmol/L LAB CHEMISTRY METHOD 08/19/2024 6:[address] [facility] Anion Gap 9 3 - 11 LAB CHEMISTRY METHOD 08/19/2024 6:[address] [facility] Glucose 386(H) 70 - 100 mg/dL LAB CHEMISTRY METHOD 08/19/2024 6:[address] [facility] BUN 20 5 - 25 mg/dL LAB CHEMISTRY METHOD 08/19/2024 6:[address] [facility] Creatinine 0.71 0.50 - 1.10 mg/dL LAB CHEMISTRY METHOD 08/19/2024 6:[address] [facility] eGFR 108 >=60 mL/min/1. 73m2 LAB CHEMISTRY METHOD 08/19/2024 6:[address] [facility] Comment:Calculation based on the Chronic Kidney Disease Epidemiology Collaboration (CKD-EPI) equation refit without adjustment for race. BUN/Creatinine Ratio 28.2 LAB CHEMISTRY METHOD 08/19/2024 6:[address] [facility] Calcium 8.9 8.5 - 10.5 mg/dL LAB CHEMISTRY METHOD 08/19/2024 6:[address] [facility] AST (SGOT) 10 10 - 42 unit/L LAB CHEMISTRY METHOD 08/19/2024 6:[address] [facility] ALT (SGPT) 22 10 - 60 unit/L LAB CHEMISTRY METHOD 08/19/2024 6:[address] [facility] Alkaline Phosphatase 151(H) 42 - 121 unit/L LAB CHEMISTRY METHOD 08/19/2024 6:[address] [facility] Total Protein 7.1 6.0 - 8.0 g/dL LAB CHEMISTRY METHOD 08/19/2024 6:[address] [facility] Albumin 3.7 3.2 - 5.0 g/dL LAB CHEMISTRY METHOD 08/19/2024 6:[address] [facility] Total Bilirubin 0.3 0.0 - 1.4 mg/dL LAB CHEMISTRY METHOD 08/19/2024 6:[address] [facility] Blood Venous blood specimen / Unknown 08/19/2024 10:27 AM EDT 08/19/2024 6:23 PM EDT Sabiha Edwardsmollybimal [employer] LAB BLOOD ORDERABLES Final Result Performing Organization Address [facility]/ZIP Co de Phone Number [facility] [address] [place] [address], * (ABNORMAL) Microalbumin creatinine urine ratio (08/19/2024 10:27 AM EDT) Creatinine, Urine 82.0 mg/dL LAB CHEMISTRY METHOD 08/19/2024 7:[address] [facility] Microalb, Ur 134.0(H) 0.0 - 29.0 mg/L LAB CHEMISTRY METHOD 08/19/2024 7:[address] [facility] Microalb/Crea t Ratio 163(H) <30 mg/g creat LAB CHEMISTRY METHOD 08/19/2024 7:[address] [facility] Urine Urine specimen obtained by clean catch procedure / Unknown 08/19/2024 10:27 AM EDT 08/19/2024 6:23 PM EDT Sabiha Hoover [employer] LAB URINE ORDERABLES Final Result Performing Organization Address [facility]/ZIP Co de Phone Number [facility] [address] [place] [address], [place] [phone] * Thyroid stimulating hormone with reflex to free t4 and free t3 (08/19/2024 10:27 AM EDT) TSH 3.00 0.40 - 4.00 mcIU/mL LAB CHEMISTRY METHOD 08/19/2024 7:[address] [facility] Blood Venous blood specimen / Unknown 08/19/2024 10:27 AM EDT 08/19/2024 6:23 PM EDT us Edjordan Hoover [employer] LAB BLOOD ORDERABLES Final Result [facility] [address] [place] [address], [place] [phone] * (ABNORMAL) Lipid panel with reflex to direct LDL (08/19/2024 10:27 AM EDT) Cholesterol 211(H) 0 - 200 mg/dL LAB CHEMISTRY METHOD 08/19/2024 6:[address] [facility] Triglycerides 136 0 - 150 mg/dL LAB CHEMISTRY METHOD 08/19/2024 6:[address] [facility] HDL 47 >=40 mg/dL LAB CHEMISTRY METHOD 08/19/2024 6:[address] [facility] LDL Calculated 137(H) 0 - 100 mg/dL LAB CHEMISTRY METHOD 08/19/2024 6:[address] [facility] VLDL Cholesterol Kendrick 27.2 mg/dL LAB CHEMISTRY METHOD 08/19/2024 6:[address] [facility] Non HDL Chol. (LDL+VLDL) 164(H) <145 mg/dL LAB CHEMISTRY METHOD 08/19/2024 6:[address] [facility] Chol/HDL Ratio 4.5(H) 0.0 - 4.4 LAB CHEMISTRY METHOD 08/19/2024 6:[address] [facility] Blood Venous blood specimen / Unknown 08/19/2024 10:27 AM EDT 08/19/2024 6:23 PM EDT Sabiha Hoover [employer] LAB BLOOD ORDERABLES Final Result [facility] [address] [place] [address], [place] [phone] * HIV 1,2 antibody, p24 antigen with reflex to differentiation (08/19/2024 10:27 AM EDT) HIV Combo AB/AG Negative Negative LAB CHEMISTRY METHOD 08/19/2024 7:[address] [facility] Blood Venous blood specimen / Unknown 08/19/2024 10:27 AM EDT 08/19/2024 6:23 PM EDT [facility] - 08/19/2024 7:56 PM EDT This assay is a 4th generation assay allowing for earlier detection of HIV infection by detecting the presence of the HIV-1 p24 antigen as well as the traditional antibodies to HIV type 1 (including group O) and type 2. Use of a 4th generation assay is the current CDC recommendation for HIV screening. [employer] LAB BLOOD ORDERABLES Final Result Performing Organization Address [facility]/ZIP Co de Phone Number [facility] [address] [place] [address], [place] [phone] * Hepatitis B surface antigen with reflex to confirmation (08/19/2024 10:27 AM EDT) Pathologist [facility] Hepatitis B Surface Ag Negative Negative LAB CHEMISTRY METHOD 08/19/2024 7:[address] [facility] Blood Venous blood specimen / Unknown 08/19/2024 10:27 AM EDT 08/19/2024 6:23 PM EDT [facility] - 08/19/2024 7:27 PM EDT Over the counter supplements containing high doses of biotin may interfere with this assay. If interference is suspected, patients shoud be retested after refraining from biotin supplements for 72 hours. us [employer] Benchmarkionan [employer] LAB BLOOD ORDERABLES Final Result Performing Organization Address [facility]/ZIP Co de Phone Number [facility] [address] [place] [address], [place] [phone] * Hepatitis B surface antibody (08/19/2024 10:27 AM EDT) Pathologist [facility] Hepatitis B Surface Ab Negative Negative LAB CHEMISTRY METHOD 08/19/2024 7:[address] [facility] Hepatitis B Surface Ab Quantitative <3.1 mIU/mL LAB CHEMISTRY METHOD 08/19/2024 7:[address] [facility] Blood Venous blood specimen / Unknown 08/19/2024 10:27 AM EDT 08/19/2024 6:[address] [facility] - 08/19/2024 7:21 PM EDT >=10 mIU/mL is considered to be consistent with immunity. EddieliStartupeandoionan [employer] LAB BLOOD ORDERABLES Final Result Performing Organization Address City/[facility]/ZIP Co de Phone Number [facility] [address] [place] [address], [place] [phone] * Hepatitis B core antibody, total (08/19/2024 10:27 AM EDT) [facility] Hep B Core Total Ab Negative Negative LAB CHEMISTRY METHOD 08/19/2024 7:[address] [facility] Blood Venous blood specimen / Unknown 08/19/2024 10:27 AM EDT 08/19/2024 6:23 PM EDT EddieliStartupeandoionan [employer] LAB BLOOD ORDERABLES Final Result [facility] [address] [place] [address], [place] [phone] * (ABNORMAL) Chlamydia trachomatis and Neisseria gonorrhoeae molecular study (08/19/2024 10:27 AM EDT) [facility] Neisseria gonorrhoeae PCR Negative Negative LAB MOLECULAR DIAGNOSTICS METHOD 08/20/2024 9:[address] [facility] Chlamydia trachomatis PCR Positive(A) Negative LAB MOLECULAR DIAGNOSTICS METHOD 08/20/2024 9:[address] [facility] Urine Cervix uteri structure / Unknown 08/19/2024 10:27 AM EDT 08/19/2024 6:23 PM EDT Sabiha Hoover NP LAB MICROBIOLOGY - GENERAL ORDERABLES Final Result [facility] [address] [place] [address], * (ABNORMAL) Complete blood count (08/19/2024 10:27 AM EDT) WBC 8.7 4.8 - 10.8 K/mcL LAB HEMETOLOGY METHOD 08/19/2024 6:[address] [facility] RBC 5.00(H) 3.80 - 4.80 M/mcL LAB HEMETOLOGY METHOD 08/19/2024 6:[address] [facility] Hemoglobin 15.0 11.5 - 16.0 g/dL LAB HEMETOLOGY METHOD 08/19/2024 6:[address] [facility] Hematocrit 44.9 35.0 - 47.0 % LAB HEMETOLOGY METHOD 08/19/2024 6:[address] [facility] MCV 90.3 79.0 - 98.0 FL LAB HEMETOLOGY METHOD 08/19/2024 6:[address] [facility] MCH 30.2 27.0 - 32.0 pcg LAB HEMETOLOGY METHOD 08/19/2024 6:[address] [facility] MCHC 33.4 32.0 - 37.0 g/dL LAB HEMETOLOGY METHOD 08/19/2024 6:[address] [facility] RDW 12.2 11.0 - 15.0 % LAB HEMETOLOGY METHOD 08/19/2024 6:[address] [facility] Platelets 357 130 - 400 K/mcL LAB HEMETOLOGY METHOD 08/19/2024 6:[address] [facility] MPV 10.7 7.0 - 11.0 FL LAB HEMETOLOGY METHOD 08/19/2024 6:[address] [facility] NRBC 0.0 <1.0 % LAB HEMETOLOGY METHOD 08/19/2024 6:[address] [facility] NRBC Absolute 0.00 <0.10 K/mcL LAB HEMETOLOGY METHOD 08/19/2024 6:[address] [facility] Blood Venous blood specimen / Unknown 08/19/2024 10:27 AM EDT 08/19/2024 6:23 PM EDT us Edjordan Hoover [employer] LAB BLOOD ORDERABLES Final Result [facility] [address] [place] [address], documented in this encounter Visit Diagnoses Diagnosis Encounter for screening for cardiovascular disorders Encounter for screening for infections with a predominantly sexual mode of transmission Encounter for screening for infectious and parasitic diseases, unspecified Encounter for screening for other suspected endocrine disorder documented in this encounter Care Teams Legal Editor Relationship Specialty Start Date End Date Physician, Pcp Unknown PCP - General 09/10/24 documented as of this encounter
--- OUTSIDE RECORDS SUMMARY | 2025-01-23 09:30 | XMS_ITS | Encounter Summary ---
Author Organization [facility] Address [address] [place] [address] Care Team Providers Care Court Magistrate Name Role Phone Curry Lowe MD Primary Care Provider [phone] Encounter Details Date Type Department Care Team (Late st Contact Info) Description 01/31/2022 Orders Only [facility] Medicine [address] [place] [id number] Curry Lowe MD [address] [place] [id number] Social History Tobacco Use Types Packs/Day Years Used Date Smoking Tobacco: Former Smokeless Tobacco: Never Comments:: Comments Unknown Sex and Gender Information Value Date Recorded Sex Assigned at Female 03/13/2021 3:19 PM EST Legal Sex Female 9:56 AM EDT Gender Identity Female 03/13/2021 3:19 PM EST Sexual Orientation Straight 03/13/2021 3: 19 PM EST documented as of this encounter Plan of Treatment Not on file documented as of this encounter Visit Diagnoses Not on filedocumented in this encounter Care Teams Court Magistrate Relationship Specialty Start Date End Date Curry Lowe MD PCP - General 08/30/21 documented as of this encounter
--- OUTSIDE RECORDS SUMMARY | 2025-01-23 09:30 | XMS_ITS | Clinical Summary ---
Author Organization [address] [facility] Address [address] [place] [address] Phone Care Team Providers Care Shoe Packer Name Role Phone Physician, Pcp Unknown Primary Care Provider Guillermina vailable Social History Tobacco Use Types Packs/Day Years Used Date Smoking Tobacco: Never Assessed Comments Unknown Sex and Gender Information Value Date Recorded Sex Assigned at Not on file Legal Sex Female 12:58 AM EST Gender Identity Not on file Sexual Orientation Not on file Plan of Treatment Health Maintenance Due Date Last Done Comments Breast Cancer Screening 1980 DTaP,Tdap,and Td Vaccines (1 - Tdap) 06/07/1999 Hepatitis B Vaccines (1 of 3 - 19+ 3-dose series) 06/07/1999 Cervical Cancer Screening: P ap Smear 2001 HPV Vaccines (1 - 3-dose SCD M series) 06/07/2007 Social Influencers of Health Screening 02/04/2022 Depression Screening 03/04/2024 COVID-19 Vaccine ( - 2024-2 6 season) 2024 Influenza Vaccine (#1) 2024 Cholesterol Screening (Lipid Panel) 08/19/2029 08/19/2024 RSV Immunization Adult Patie nts (1 - 1-dose 75+ series) 06/07/2055 HIV Screening Completed 08/19/2024 Hepatitis C Screening Completed 08/19/2024 HIB Vaccines Aged Out No longer eligi ble based on patient's age to complete this topic Hepatitis A Vaccines Aged Out No long er eligible based on patient's age to complete this topic IPV Vaccines Aged Out No longer eligi ble based on patient's age to complete this topic MMR Vaccines Aged Out No longer eligi ble based on patient's age to complete this topic Meningococcal ACWY Vaccine Aged Out N o longer eligible based on patient's age to complete this topic Meningococcal B Vaccine Aged Out No l onger eligible based on patient's age to complete this topic Pneumococcal Vaccine: Pediat rics (0 to 5 Years) and At-Risk Patients (6 to 49 Years) Aged Out No longer eligi ble based on patient's age to complete this topic RSV Immunization Patients Un le 20 months Aged Out No longer eligible b ased on patient's age to complete this topic Varicella Vaccines Aged Out No longer eligible based on patient's age to complete this topic Procedures Procedure Name Priority Date/Time Associated Diagnosis [...] for screening for other suspected endocrine disorder from Last 3 Months or Most Recently Relevant to Health Maintenance Results * Hepatitis C antibody (08/19/2024 10:27 AM EDT) Hepatitis C Antibody Negative Negative LAB CHEMISTRY METHOD 08/19/2024 7:55 PM EDT [facility] Blood Venous blood specimen / Unknown 08/19/2024 10:27 AM EDT 08/19/2024 6:23 PM EDT us Edjordan Hoover NP LAB BLOOD ORDERABLES Final Result [facility] [address] [place] [address], * HIV 1,2 antibody, p24 antigen with reflex to differentiation (08/19/2024 10:27 AM EDT) [facility] HIV Combo AB/AG Negative Negative LAB CHEMISTRY METHOD 08/19/2024 7:56 PM EDT [facility] Blood Venous blood specimen / Unknown 08/19/2024 10:27 AM EDT 08/19/2024 6:23 PM EDT [facility] - 08/19/2024 7:56 PM EDT This assay is a 4th generation assay allowing for earlier detection of HIV infection by detecting the presence of the HIV-1 p24 antigen as well as the traditional antibodies to HIV type 1 (including group O) and type 2. Use of a 4th generation assay is the current CDC recommendation for HIV screening. Sabiha Hoover NP LAB BLOOD ORDERABLES Final Result [facility] [address] [place] [address], [place] [phone] * (ABNORMAL) Lipid panel with reflex to direct LDL (08/19/2024 10:27 AM EDT) [facility] Cholesterol 211(H) 0 - 200 mg/dL LAB CHEMISTRY METHOD 08/19/2024 6:47 PM EDT [facility] Triglycerides 136 0 - 150 mg/dL LAB CHEMISTRY METHOD 08/19/2024 6:47 PM EDT [facility] HDL 47 >=40 mg/dL LAB CHEMISTRY METHOD 08/19/2024 6:47 PM EDT [facility] LDL Calculated 137(H) 0 - 100 mg/dL LAB CHEMISTRY METHOD 08/19/2024 6:47 PM T [facility] VLDL Cholesterol Kendrick 27.2 mg/dL LAB CHEMISTRY METHOD 08/19/2024 6:47 PM EDT [facility] Non HDL Chol. (LDL+VLDL) 164(H) <145 mg/dL LAB CHEMISTRY METHOD 08/19/2024 6:47 PM EDT [facility] Chol/HDL Ratio 4.5(H) 0.0 - 4.4 LAB CHEMISTRY METHOD 08/19/2024 6:47 PM EDT [facility] Blood Venous blood specimen / Unknown 08/19/2024 10:27 AM EDT 08/19/2024 6:23 PM EDT us Sabiha Hoover HE[employer] AND [employer] INSULATOR HELPER LAB BLOOD ORDERABLES Final Result [facility] [address] [place] [address], from Last 3 Months or Most Recently Relevant to Health Maintenance Insurance [facility] [employer] MED[facility] - [place] Care Teams Shoe Packer Relationship Specialty Start Date End Date Physician, Pcp Unknown PCP - General 09/10/24
--- OUTSIDE RECORDS SUMMARY | 2025-01-23 09:30 | XMS_ITS | Encounter Summary ---
Author Organization [facility] Address [address] [place] [address] Care Team Providers Care Ehs Manager Name Role Phone Physician, Pcp Unknown Primary Care Provider Guillermina vailable Encounter Details Date Type Department Care Team (Late st Contact Info) Description 09/10/2024 Lab Requisition [facility] [address] [facility] [place] [address] Sabiha Hoover NP [address] [place] [address] Acute vaginitis Social History Tobacco Use Types Packs/Day Years [...] Diagnosis Comments VAGINITIS PATHOGENS BY PCR Routine 09/10/2024 3:48 PM EDT Acute vaginitis documented in this encounter Results * (ABNORMAL) Vaginitis pathogens molecular study (09/10/2024 3:48 PM EDT) Trichomonas vaginalis Negative Negative 09/11/2024 11:50 AM EDT [facility] Gardnerella vaginalis Positive(A) Negative 09/11/2024 11:50 AM EDT [facility] Gale Species Negative Negative 11:50 AM EDT [facility] Swab Vaginal structure / Unknown 09/10/2024 3:48 PM EDT 09/10/2024 4:41 PM EDT us Sabiha Hoover NP LAB MICROBIOLOGY - GENERAL ORDERABLES Final Result Performing Organization Address City/State/[facility] Co de Phone Number [facility] [address] [place] [address], documented in this encounter Visit Diagnoses Diagnosis Acute vaginitis Unspecified vaginitis and vulvovaginitis documented in this encounter Care Teams Ehs Manager Relationship Specialty Start Date End Date Physician, Pcp Unknown PCP - General 09/10/24 documented as of this encounter
--- OUTSIDE RECORDS SUMMARY | 2025-01-23 09:30 | XMS_ITS | Clinical Summary ---
Author Organization [facility] Address [address] [place] [address] Care Team Providers Care Travel Information Center Supervisor Name Role Phone Curry Lowe MD Primary Care Provider [phone] Allergies Active Allergy Reactions Criticality Noted Date Comments Oxycodone-Acetaminophen Anaphylaxis High 08/29/2018 Medications * This document contains information received from the source organization and may not represent a complete record from that organization. Lantus Solostar U-100 Insulin 100 unit/mL (3 mL) insulin pen INJECT 30 UNITS UNDER THE SKIN NIGHTLY. 15 mL 2 3 Active Additional Information Patient not taking.Reported on 07/24/2023 insulin lispro 100 unit/mL insulin pen USE THREE TIMES A DAY PER PER SLIDING SCALE SCALE 15 mL 1 3 Active Additional Information Patient not taking.Reported on 07/24/2023 TrileptaL 150 mg tablet SMARTSI Tablet(s) By Mouth Twice Daily 4 Active Lexapro 10 mg tablet SMARTSI Tablet(s) By Mouth Daily 4 Active cloNIDine (CATAPRES) 0.1 mg tablet SMARTSI Tablet(s) By Mouth Twice Daily PRN 4 Active lisinopriL (PRINIVIL,ZESTRI L) 5 mg tabletIndication s:Essential (primary) hypertension Take 1 tablet (5 mg total) by mouth once a day. 90 tablet 4 Active gabapentin (NEURONTIN) 300 mg capsule Take 1 capsule (300 mg total) by mouth 3 times a day. 48 capsule 3 4 Active cholecalciferol (VITAMIN D3) 2,000 unit capsule Take 1 capsule (2,000 Units total) by mouth once a day. 4 Active Active Problems Problem Noted Date Diagnosed Date Chronic pain of right knee 10/17/2021 Assessment & Plan (10/17/2021 7:56 PM EDT): Discussed with the patient that given her clicking sensation, pain with any movement of her right knee, pain with palpation along her right medial joint line, and particularly pain with Emily test on the right, there was some concern for a torn meniscus. Noted that we could start with an x-ray of the right knee and follow- up with an MRI of the right knee. Noted that she could continue to take ibuprofen and Tylenol as needed to help with pain, noting that taking ibuprofen on a scheduled basis every helps more with inflammation and might improve her pain relief. Also recommended she ice her knee on/off 15 minutes for up to an hour after any significant walking. We will follow-up pending x-ray and MRI results Diarrhea 10/17/2021 Assessment & Plan (10/17/2021 7:57 PM EDT): Patient reported multiple months of diarrhea without other infectious review of systems. She denies other review of systems for IBD and without abdominal pain would be unlikely to meet Sly for criteria for IBS. As she previously has labs ordered for a CMP, magnesium, and TSH, we will collect these labs today and follow-up as appropriate. Skin pustule 10/12/2021 Assessment & Plan (10/12/2021 10:15 AM EDT): Patient reports a history of skin pustules on her forehead which have responded in the past to Keflex. They appear when her blood sugars are uncontrolled. I prescribed Keflex and her forehead will be reexamined via telehealth early next week. 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 Area appears to be where her waistband of leggings was rubbing, likely resulted in introduction of bacteria in a hair follicle. As patient has history of uncontrolled diabetes and has required hospitalization for her cellulitis in the past, will be aggressive with antibiotic therapy and will treat with both cephalexin for streptococcal coverage and Bactrim for staphylococcal coverage including MRSA. Provided patient with counseling regarding antibiotic diarrhea and use of probiotics. Also counseled patient to complete course of antibiotics but to let us know if symptoms are not improving after 48 hours. If symptoms worsen or if the area of infection spreads, she is to let us know and may require inpatient stay for IV antibiotics. Swimmer's ear 09/24/2018 Assessment & Plan (09/24/2018 4:01 PM EDT): Patient with reports of left ear pain particularly with palpation of the external acoustic canal and the tragus. External acoustic canal erythematous and tender with insertion of the speculum likely secondary to otitis externa given daily swimming. Advised to avoid submerging the ear in the water. Prescribed Ciprodex 4 drops in the left ear twice daily Blister of foot 09/02/2018 Assessment & Plan (09/02/2018 10:25 PM EDT): Patient presenting with history of the left foot for 1.5 months status post lidocaine injection in the ED per patient report without resolution. Unclear if patient has underlying neuropathy however this will be addressed at the next visit when patient symptoms have hopefully involved. Aspiration of lesion as above. Patient endorsed some mild relief after the procedure. Advised that the lesion will likely recur. She did continue offloading pressure she has been doing. Cellulitis of abdominal wall 09/02/2018 Assessment & Plan (09/02/2018 10:27 PM EDT): Patient presenting with cellulitis of the abdominal wall in the setting of type 2 diabetes, uncontrolled. Has been hospitalized for similar problem 3 months ago. -Keflex 500 mg 4 times daily for 7 days -Bactrim DS 800-160 mg twice daily for 7 days Costochondritis 03/13/2013 Cannabis abuse, episodic 03/13/2013 Fatigue 03/13/2013 Type 2 diabetes mellitus wit hout complication, without long-term current use of insulin 12/28/2009 Assessment & Plan (10/18/2021 6:22 PM EDT): Tree has been struggling with diabetes control even since her up titration from 27 to 30 units of Lantus nightly. She has been doing her sliding scale which ranges between 8 and 12 units given her recent sugars which have been in the 2-400s. Given this, we will plan to add Ozempic to her medication regimen as this may also help with weight loss. Discussed the risk of hypoglycemia with her though I expect this will be helpful for her given her recent sugar readings. We will message our team to check on her on Saturday to see if she is obtain the medication and if she is doing okay with it. Assessment & Plan (10/17/2021 7:58 PM EDT): Patient with a history of type 2 diabetes previously poorly controlled in May 2020. Patient reporting that she would like to have labs drawn today to assess her diabetes is currently doing for making further decisions about medication titration. Will order hemoglobin A1c. We will also order a urine microalbumin to creatinine ratio. Should assess patient's microfilament exam and whether she needs retinopathy screen at next visit. We will have patient follow-up in around 1 week Assessment & Plan (10/12/2021 10:19 AM EDT): Patient was diagnosed with type 2 diabetes in 2018. At this time her blood sugar was are uncontrolled. Due to her experiencing symptoms associated with high blood sugars including increased thirst, urination, chest pain, headaches, and increased paresthesias I increased her Lantus to 30 units at night. She was instructed to keep a blood sugar log where she measures her blood sugars 4 times a day. She was also referred to [facility] endocrinology as well as scheduled for a telehealth with nutrition. She was scheduled for a telehealth visit early next week (Saturday or Saturday at the latest) for close follow-up. Patient agreed with the plan and is aware of the risks of uncontrolled blood sugar. - blood glucose diagnostic test strip; Use to test 4 times daily. - Freestyle lancets 28 gauge; Use to test 4 times daily. - Ambulatory referral to Endocrinology; Future Assessment & Plan (12/28/2019 8:43 PM EDT): Patient with diagnosis of type 2 diabetes diagnosed in 2018. She last saw Dr. Anderson here at the [facility] back in September 2018. At that time, she had been started on metformin but did not continue taking it because she thought she might of gotten a rash from this medication. She has since been without any diabetic medications whatsoever. She did have an inpatient hospitalization in 2019 and was started on insulin during that time. For now, I advised the patient that we should start with metformin once again (I believe that the risk of allergic reaction is quite low given her history of a very small, localized rash) due to its benefits for overall mortality and our likelihood of keeping it on as a medication regardless of whether or not she starts insulin. Recheck hemoglobin A1c today as well as a BMP. The patient will gradually taper up on her metformin until she is at a dose of about 500 mg twice daily. She should follow-up with her primary care physician at that time to see how things are going. Given how high her hemoglobin A1c is and her good response to insulin, consider insulin in the future but may want to start other antihyperglycemic's first. -Metformin started at 250 mg daily to gradually increase up to 500 mg twice daily -Hemoglobin A1c, CMP, and lipid panelobtained today -Follow-up with primary care doctor Assessment & Plan (01/22/2019 3:19 PM EST): Patient with diagnosis of type 2 diabetes diagnosed earlier this year. She last saw Dr. Anderson here at the [facility] back in September. At that time, she had been started on metformin but did not continue taking it because she thought she might of gotten a rash from this medication. She has since been without any diabetic medications whatsoever. She recently had an inpatient hospitalization in which they started her on insulin which was wondering if she should continue on this. For now, I advised the patient that we should start with metformin once again (I believe that the risk of allergic reaction is quite low given her history of a very small, localized rash) due to its benefits for overall mortality and our likelihood of keeping it on as a medication regardless of whether or not she starts insulin. Recheck hemoglobin A1c today as well as a BMP. The patient will gradually taper up on her metformin until she is at a dose of about 500 mg twice daily. She should follow-up with her primary care physician at that time to see how things are going. Given how high her hemoglobin A1c is and her good response to insulin, consider insulin in the future but may want to start other antihyperglycemic's first. -Metformin started at 250 mg daily to gradually increase up to 500 mg twice daily -Hemoglobin A1c, BMP, and eavtd-ly-gqge glucose obtained today -Follow-up with primary care doctor Assessment & Plan (09/02/2018 10:11 PM EDT): Patient with reports of diagnosis of type 2 diabetes 3 months ago while in hospital admission. Has been using her boyfriends Lantus insulin without any particular regimen or glucose monitoring. Glucose today 278. Risk of hypoglycemia in this patient is high and will perform all diabetic labs at this visit with follow-up next week. - Begin metformin 250 mg twice daily - Hemoglobin A1c - Microalbumin Morbid obesity 11/28/2009 Hypertension 11/28/2009 Assessment & Plan (01/22/2019 3:19 PM EST): Patient with hypertension previously on lisinopril 10 mg daily. During her inpatient hospitalization her lisinopril was increased to 20 mg daily. She will continue on this medication. Depression 03/28/2009 Assessment & Plan (01/22/2019 3:20 PM EST): Patient with unspecified psychiatric issues with recent inpatient stay for the same. She was started on topiramate and hydroxyzine. She will continue to follow-up with her primary care doctor. Resolved Problems Problem Noted Date Diagnosed Date Resolved Date Acute bronchitis 04/01/2013 09/02/2018 Immunizations Immunization Administration Dates Next Due Covid-19, Pfizer, mRNA, [place] valent, PF, 30 mcg/0.3 mL dose, spencer-sucrose (COMIRNATY)(for ages 12 and older) 11/01/2021,08/31/2021 Hepatitis B Vaccine, Pediatr ic or Pediatric/Adolescent Dosage 06/29/2011 Hepatitis B adult (ENGERIX-B ADULT) vaccine 1 mL IM 07/06/2022 INFLUENZA, SPLIT VIRUS, TRIVALENT, PF ,03/13/2013,04/07/2012,12/06,12/28/2009 Influenza, Injectable, Quadr ivalent, Preservative Free 05/16/2023 Measles, Mumps, and Rubella Vaccine 06/29/2011 Pneumococcal Polysaccharide Vaccine, 23 Valent 09/24/2018,12/28/2009 Pneumococcal conjugate PCV20,polysaccharide [id number] conjugate, adjuvant, PF (Prevnar 20) 07/06/2022 Tetanus Toxoid, Reduced Diph theria Toxoid, and Acellular Pertussis Vaccine, Adsorbed 08/10/2022,08/16/2018,04/07/2012 Tuberculin Skin Test; Rickey ed Protein Derivative Solution, Intradermal 01/30/2011 Varicella Virus Vaccine 06/29/2011 Family History Medical History Relation Name Comments Other Maternal Grandfather Materna l grandfather's history of Coronary Artery Disease Other Mother Maternal histor y of Diabetes Mellitus Other Other Family history of Coronary Artery Disease Relation Name Status Comments Maternal Grandfather Mother Other Social History Tobacco Use Types Packs/Day Years Used Date Smoking Tobacco: Former Smokeless Tobacco: Never Tobacco Cessation:Counseling Given: Not Answered Comments:: Comments Unknown Sex and Gender Information Value Date Recorded Sex Assigned at Female 03/13/2021 3:19 PM EST Legal Sex Female 9:56 AM EDT Gender Identity Female 03/13/2021 3:19 PM EST Sexual Orientation Straight 03/13/2021 3: 19 PM EST Last Filed Vital Signs Vital Sign Reading Time Taken Comments Blood Pressure 143/99 07/24/2023 11:24 AM EDT Pulse 89 07/24/2023 11:24 AM EDT Temperature 37 C (98.6 F) 12/22/2019 2:20 PM EDT Respiratory Rate 20 07/24/2023 11:24 AM EDT Oxygen Saturation 97% 07/07/2010 10:31 AM EDT Inhaled Oxygen Concentration - - Weight 111.2 kg (245 lb 2 oz) 07/24/2023 11:24 A M EDT Height 152.4 cm (5') 07/24/2023 11:24 AM EDT Body Mass Index 47.87 07/24/2023 11:24 AM EDT Plan of Treatment Health Maintenance Due Date Last Done Comments HPV and Pap Smear 05/27/2014 05/27/2009 Mammogram 2020 Hepatitis B Vaccines (2 of 3 - 19+ 3-dose series) 08/03/2022 07/06/2022, 06/29/2011 Ophthalmology Exam 09/19/2022 09/19/2021, 01/03/2012 Cervical Cancer Screening 05/19/2023 Pap Smear 05/19/2023 05/18/2020, 05/03, 03/17/2002, Additional history exists Hemoglobin A1C 10/24/2023 07/24/2023, 05/0 07/2022, 10/05/2021, Additional history exists Alcohol/Substance Use Screening 03/04/2024 Depression Screening and Follow-Up 03/04/2024 [facility] ual Screening 03/04/2024 Basic Metabolic Panel 07/23/2024 07/24/2023 , 07/06/2022, 10/05/2021, Additional history exists Urine Microalbumin 07/23/2024 07/24/2023, 0 10/05/2021, 08/29/2018, Additional history exists Influenza Vaccine (#1) 2024 , 05/15/2018, 03/13/2013, Additional history exists DTaP,Tdap,and Td Vaccines (4 - Td or Tdap) 08/10/2032 08/10/2022, 08/16/2018, 04/07/2012 Varicella Vaccines Discontinued 06/29/2011 Hepatitis C Screening Completed 08/29/2018, 009 COVID-19 Vaccine Discontinued 11/01/2021, 08/31/2021 HIV Screening Completed 07/06/2022 Pneumococcal Vaccine: Pediat jeffery (0-5 Years) and At-Risk Patients (6-50 Years) Completed 07/06/2022, 09/24/2018, 12/28/2009 Procedures * Due to [place] state law, this organization might not be sharing negative HIV tests. Procedure Name Priority Date/Time Associated Diagnosis Comments MICROALBUMIN, RANDOM URINE WITH CREATININE Routine 07/24/2023 11:54 AM EDT Type 2 diabetes mellitus without complication, without long-term current use of insulin HEMOGLOBIN A1C Routine 07/24/2023 11:54 AM EDT Type 2 diabetes mellitus without complication, without long-term current use of insulin BASIC METABOLIC PANEL Routine 07/24/2023 11:54 AM EDT Type 2 diabetes mellitus without complication, without long-term current use of insulin PAP Routine 05/18/2020 5:15 PM EDT Encounter for Papanicolaou smear for cervical cancer screening HEPATITIS C ANTIBODY W/REFLEX TO HCV RNA, QUANTITATIVE PCR Routine 08/29/2018 4:43 PM EDT Occupational exposure in workplace HM DIABETES EYE EXAM Routine 01/03/2012 3:22 PM EDT PAP W/HPV, CONVERSION Routine 05/27/2009 8:21 AM EDT from Last 3 Months or Most Recently Relevant to Health Maintenance Results * Due to [place] state law, this organization might not be sharing negative HIV tests. * (ABNORMAL) Microalbumin / creatinine, urine ratio (Lab Collect) (07/24/2023 11:54 AM EDT) Microalbumin, Urine 4.8 mg/dL 07/24/2023 10:33 PM EDT [facility] Creatinine, Urine 73 15 - 278 mg/dL 07/24/2023 10:33 PM EDT [facility] Microalb/Creat Ratio, Random Urine 65.8(H) <30.0 mcg/mgCr 07/24/2023 10:33 PM EDT [facility] Comment: Microalbumin Reference Range: Normal <30 mcg/mg Creatinine Microalbuminuria 30-300 mcg/mg Creatinine Clinical Albuminuria >300 mcg/mg Creatinine Reference: ADA Guideline. Diabetes Care. 2004;27 (suppl 1) Urine Urine specimen collection, clean catch / Unknown Non-Blood Collection / Unknown 07/24/2023 11:54 AM EDT 07/24/2023 11:54 AM EDT us Isabella Shepherd MD [facility] LAB URINE ORDERABLES Nelida bella Result [facility] [address] [place] [address], * (ABNORMAL) Hemoglobin A1c (07/24/2023 11:54 AM EDT) Hemoglobin A1C 13.5(H) <5.7 % of total Hgb 07/25/2023 9:58 PM EDT [facility] Comment: For someone without known diabetes, a hemoglobin A1c value of 6.5% or greater indicates that they may have diabetes and this should be confirmed with a follow-up test. For someone with known diabetes, a value <7% indicates that their diabetes is well controlled and a value greater than or equal to 7% indicates suboptimal control. A1c targets should be individualized based on duration of diabetes, age, comorbid conditions, and other considerations. Currently, no consensus exists regarding use of hemoglobin A1c for diagnosis of diabetes for children. eAG (MG/DL) 341 mg/dL 07/25/2023 9:58 PM EDT [facility] eAG (MMOL/L) 18.9 mmol/L 07/25/2023 9:58 PM EDT [facility] Comment: This test was performed on the Ramirez estuardo c503 platform. Effective 05/06/23, a change in test platforms from the Nesbitt Him Specialist to the Ramirez estuardo c503 may have shifted HbA1c results compared to historical results. Based on laboratory validation testing conducted at [facility], the Ramirez platform relative to the Nesbitt platform had an average increase in HbA1c value of < or = 0.3%. This difference is within accepted variability established by the National Glycohemoglobin Standardization Program. Note that not all individuals will have had a shift in their results and direct comparisons between historical and current results for testing conducted on different platforms is not recommended. Blood Structure of peripheral vein / Unknown Venipuncture / Unknown 07/24/2023 11:54 AM EDT 07/24/2023 11:54 AM EDT Narrative [facility] - 07/25/2023 9:58 PM EDT [facility] Received Date: us Isabella Shepherd MD [facility] LAB BLOOD ORDERABLES Nelida bella Result [facility], [place] [address], [place] [phone] [facility] [address] [facility] [address], [place] [address], [place] [phone] * (ABNORMAL) Basic metabolic panel (07/24/2023 11:54 AM EDT) NA 137 135 - 145 mmol/L 07/24/2023 10:28 PM EDT [facility] K 3.8 3.5 - 5.3 mmol/L 07/24/2023 10:28 PM EDT [facility] Cl 104 97 - 110 mmol/L 07/24/2023 10:28 PM EDT [facility] CO2 23(L) 24 - 32 mmol/L 07/24/2023 10:28 PM EDT [facility] BUN 10 7 - 23 mg/dL 07/24/2023 10:28 PM EDT [facility] Creatinine 0.55 0.50 - 1.20 mg/dL 07/24/2023 10:28 PM EDT [facility] Glucose 349(H) 70 - 99 mg/dL 07/24/2023 10:28 PM EDT [facility] Calcium 8.9 8.7 - 10.7 mg/dL 07/24/2023 10:28 PM EDT [facility] Anion Gap 10 5 - 15 07/24/2023 10:28 PM EDT [facility] eGFR >90 >=60 mL/min/1. 73m2 07/24/2023 10:28 PM EDT [facility] Comment:The estimated glomer ular filtration rate (eGFR) is calculated using a new formula developed by the NKF-ASN task force to eliminate race-based correction factors. The new formula uses serum/plasma creatinine, age, and gender to determine eGFR. A value below 60mls/min might indicate kidney disease and will be flagged. For additional information, see Dao et al, Am J Kidney Dis. 2021;79(2):268- 288, A Unifying Approach for GFR estimation: Recommendations of the NKF-ASN Task Force on Reassessing the Inclusion of Race in Diagnosing Kidney Disease . Blood Structure of peripheral vein / Unknown Venipuncture / Unknown 07/24/2023 11:54 AM EDT 07/24/2023 11:54 AM EDT us Isabella Shepherd MD [facility] LAB BLOOD ORDERABLES Nelida bella Result [facility] [address] [place] [address], * Pap (05/18/2020 5:15 PM EDT) Specimen Adequacy Satisfactory for evaluation, endocervical/mohamud sformation zone component absent [facility] MAN[facility] 1 4:07 PM EDT [facility] Pathologist Cytology Interpretation Negative for intraepithelial lesion or malignancy. [facility] 1 4:07 PM EDT [facility] at 1607 EDT Comment:This is the result o f a morphological screening test with an inherent possibility of a false negative interpretation. Other Findings Trichomonas vaginalis [facility] 1 4:07 PM EDT [facility] Nutrition Intern Statement This Pap test could not be examined by the ThinPrep Imaging System, [employer], [place], [place], and required a full manual screening. This Pap test was examined in accordance with the [facility] Cytopathology Laboratory written policy, which incorporates all CLIA mandates. Screening guidelines can be found in Am J Clin Pathol 2012;137:516-542. We endorse the practice guidelines developed by ASCCP and published in the Journal Lower Genital Tract Disease 17(5):S1-S27 (2013). [facility] 1 4:07 PM EDT [facility] Clinical History screening [facility] 1 4:07 PM EDT [facility] Resulting Agency Case was signed out at [facility], Department of Pathology, [employer] 3 CLIA [id number] [facility] MANUAL 4:07 PM EDT [facility] LAB[facility] Report Header Gynecologic Cytology Report Case: [id number] Authorizing Provider: Kristopher Padilla NP Collected: 05/18/2020 1715 Ordering Location: [facility] Received: 05/18/2020 1715 [facility] First Screen: Tristin Main Specimen: ThinPrep Rejected, Cervix/Endocervix 4:07 PM EDT [facility] [employer] [facility] PATHOLOGY LABORATORY Brushing Cervix uteri structure / Unknown Non-Blood Collection / Unknown 05/18/2020 5:15 PM EDT 05/18/2020 5:15 PM EDT us Kristopher Padilla NP LAB PATHOLOGY/CYTOLOGY ORDERA BLES Final Result [facility] [employer] [facility] [address] [place] [id number], * Hepatitis C Antibody w/Reflex to HCV RNA, Quantitative PCR (08/29/2018 4:43 PM EDT) Hepatitis C Antibody NON-REACT ARMIDA NON-REACT ARMIDA 08/30/2018 6:24 AM EDT [employer] Signal To Cut-Off 0.01 <1.00 08/30/2018 6:24 AM EDT [employer] [facility] Comment: HCV antibody was non-reactive. There is no laboratory evidence of HCV infection. In most cases, no further action is required. However, if recent HCV exposure is suspected, a test for HCV RNA (test code 44012) is suggested. For additional information please refer to http://education.[employer]/faq/FUH23q2 (This link is being provided for informational/ educational purposes only.) Blood specimen (specimen) Structure of peripheral vein / Unknown Venipuncture / Unknown 08/29/2018 4:43 PM EDT 08/29/2018 4:47 PM EDT Narrative [facility] - 08/30/2018 6:24 AM EDT [facility] Received Date:[id number] Cuong Silva MD LAB BLOOD ORDERABLES Final Re sult [facility] [address], [place] [address], [place] [phone] [facility] [address], [place] [address], [place] [phone] * DIABETES EYE EXAM (01/03/2012 3:22 PM EDT) Pathologist [facility] Eye Exam NO EVIDENCE OF DIABETIC RETINOPATHY, RETURN IN ONE YEAR [facility] MANUAL RESULTS 01/03/2012 3:22 PM EDT [facility] Physician HEALTH MAINTENANCE Final Re sult [facility] MANUAL RESULTS * Pap w/HPV (05/27/2009 8:21 AM EDT) [facility] Path Procedure HPV (345899) 1 TPGAS (728850) 1 Edited by: [id number] - 820 SUPRIYA [id number] - 1220 BW-SCRPT6 [facility] - [facility] THREE Specimen Labeled As: 1 CERVICAL/ENDOCERVI SUMAN CYTO MATERIAL - Edited by: [id number] [facility] - [facility] THREE Additional Test Information Specimens were tested for high risk HPV using the FDA approved Digene Hybrid Capture II kit, in the Diagnostic Molecular Oncology Lab at [facility]. This test can detect HPV high risk types 16, 18, 31, 33, 35, 39, 45, 51, 52, 56, 58, 59 and 68. High-risk subtypes of HPV are found in ~96% of patients with high grade squamous intraepithelial lesions and cervical squamous cell carcinoma. Additional studies may be indicated in spite of a negative HPV test, e.g. in patients with a friable cervix or multiple previous abnormal Pap tests. HPV testing is not recommended for managing patients with atypical glandular cells. Not all high-risk HPV infections are associated with a histologic or cytologic abnormality. We endorse the recommendations of the [place] Society for Colposcopy and Cervical Pathology for management of Pap test results, available at www.asccp.org. ASCCP guidelines also recommend HPV 16/18 genotyping in patients over the age of 30 who have had positive high risk HPV testing, but have a negative morphologic Pap test (http://www.asccp. org/consensus.shtm l). The performance characteristics of this test have been validated by the Laboratory of Diagnostic Molecular Oncology. They have not been cleared or approved by the U.S. Food and Drug Administration (FDA). The FDA has determined that such clearance or approval is not necessary. The laboratory is certified (CLIA-88) to perform high complexity clinical laboratory testing. Edited by: [id number] - 1220 BW-SCRPT6 [facility] - [facility] Diagnosis ThinPrep Pap Test Adequacy: Satisfactory for evaluation - no evidence of Transformation Zone sampling. Interpretation: Negative for Intraepithelial Lesion or Malignancy Shift in yasmeen suggestive of bacterial vaginosis This Pap test was examined by the ThinPrep Imaging System, [employer], [place], [place]. - High risk HPV DNA subtypes: NEGATIVE Edited by: [id number] - 122 -SCRPT6 [id number] - 0856 PURA [facility] PATHOLOG[facility] - [facility] THREE Gynecologic Clinical Data Specimen source:, THINPREP (CERVICAL AND ENDOCERVICAL) [facility]AT[facility] PATHOLOG[facility] - [facility] THREE Gynecologic Clinical Data First date of LMP:, 05-13-09 [facility] - [facility] Completed Report [id number] CYTOPATH C/V AUTORESCR SCR 1 [facility] PATH[facility] - [facility] THREE Marker 1 YUKI BEE [facility] ANATOMIC PATHOLOGY - BIOTECH THREE Marker 2 GONZALEZ MORRIS [facility] ANATOMIC PATHOLOGY - BI[facility] THREE Marker 3 MDNEG,MD NEGATIVE [facility] ANATOMIC PATHOLOGY - BIOTECH THREE Marker 4 NILM,NILM [facility] ANATOM[facility] PATHOLOGY - BI[facility]CH THREE Marker 5 RIM,RECEIVED IN MOLECULAR [facility]ATOM[facility] PATHOLOGY - [facility] THREE Cc Results To OMAYRA HERNANDEZ REF [id number] [facility] PATH[facility] - BI[facility] THREE Signature REPORT SIGNED: YUKI FONG 06/02/09 [facility] - [facility] Sign Out Audit YUKI FONG [id number] FINAL NEW PURA [id number] [facility] - [facility] THREE Cytology / Unknown 0 8:21 AM EDT 05/31/2009 8:21 AM EDT us Franchesca Ghotra LAB HISTORICAL RESULTS Final Re sult [facility] PATH[facility] - [facility] THREE [address] [place] [address], from Last 3 Months or Most Recently Relevant to Health Maintenance Insurance [facility] MEDICAID Advance Directives Documents on File Type Date Recorded Patient Content Management Consultant Expl anation Advance Directive 08/08/2013 12:00 AM Advan ce Care Directives Care Teams Travel Information Center Supervisor Relationship Specialty Start Date End Date Curry Lowe MD PCP - General 08/30/21
--- OUTSIDE RECORDS SUMMARY | 2025-01-23 09:30 | XMS_ITS | Patient Health Record ---
Author Organization [facility] Address [address] [place] [address] Care Team Providers Care Central Service Tech Name Role Phone NO, PCP Primary Care Provider [phone] Luh Davies Unavailable [phone] [facility], Nursing Unavailable [phone] Sabiha Hoover Unavailable [phone] Migration, Provider Unavailable Unavailable Allergies Allergen (clinical drug ingredient) Drug/Non Drug Allergy documented on EMR Reaction Allergy Type Onset Date Status acetaminophen / oxycodone Percocet anaphylaxis Drug Allergy Active Results Component Value Reference Range Notes QUANTIFERON(R)-TB GOLD PLUS, 1 TUBE Reviewed date:08/28/2024 08:49:40 AM Interpretation:Negative Performing Lab:NL2, [facility] [id number] Mirna Ramos Notes/Report: NON-FASTING QUANTIFERON(R)-TB GOLD PLUS, 1 TUBE NEGATIVE NEGATIVE Negative test result. M. tuberculosis complex infection unlikely. NIL 0.10 MITOGEN-NIL >10.00 TB1-NIL 0.01 TB2-NIL 0.00 The Nil tube value reflects the background interferon gamma immune response of the patient's blood sample. This value has been subtracted from the patient's displayed TB and Mitogen results. Lower than expected results with the Mitogen tube prevent false-negative Quantiferon readings by detecting a patient with a potential immune suppressive condition and/or suboptimal pre-analytical specimen handling. The TB1 Antigen tube is coated with the M. tuberculosis-specific antigens designed to elicit responses from TB antigen primed CD4+ helper T-lymphocytes. The TB2 Antigen tube is coated with the M. tuberculosis-specific antigens designed to elicit responses from TB antigen primed CD4+ helper and CD8+ cytotoxic T-lymphocytes. For additional information, please refer to https://education.9Flava/faq/FBF434 (This link is being provided for informational/ educational purposes only.) Blood Sugar/finger stick Reviewed date:08/20/2024 10:25:25 AM Interpretation:High, too high to read. Performing Lab: Notes/Report: High, too high to read. test - urine dip Reviewed date:08/20/2024 11:33:14 AM Interpretation:Negative Performing Lab: Notes/Report: Negative COMPREHENSIVE METABOLIC PANE L Reviewed date:08/20/2024 09:41:22 AM Interpretation:Abnormal Performing Lab: Notes/Report: Sodium 136 133-145 mmol/L Potassium 4.7 3.5-5.5 mmol/L Chloride 104 96-110 mmol/L CO2 23 21-32 mmol/L Anion Gap 9 3-11 Glucose 386 70-100 mg/dL BUN 20 5-25 mg/dL Creatinine 0.71 0.50-1.10 mg/dL eGFR 108 >=60 mL/min/1.73m2 Calculati on based on the Chronic Kidney Disease Epidemiology Collaboration (CKD-EPI) equation refit without adjustment for race. BUN/Creatinine Ratio 28.2 Calcium 8.9 8.5-10.5 mg/dL AST (SGOT) 10 10-42 unit/L ALT (SGPT) 22 10-60 unit/L Alkaline Phosphatase 151 42-121 unit/L Total Protein 7.1 6.0-8.0 g/dL Albumin 3.7 3.2-5.0 g/dL Total Bilirubin 0.3 0.0-1.4 mg/dL COMPLETE BLOOD COUNT Reviewed date:08/20/2024 09:41:02 AM Interpretation:Abnormal Performing Lab: Notes/Report: WBC 8.7 4.8-10.8 K/mcL RBC 5.00 3.80-4.80 M/mcL Hemoglobin 15.0 11.5-16.0 g/dL Hematocrit 44.9 35.0-47.0 % MCV 90.3 79.0-98.0 FL MCH 30.2 27.0-32.0 pcg MCHC 33.4 32.0-37.0 g/dL RDW 12.2 11.0-15.0 % Platelets 357 130-400 K/mcL MPV 10.7 7.0-11.0 FL NRBC 0.0 <1.0 % NRBC Absolute 0.00 <0.10 K/mcL LIPID PANEL WITH REFLEX TO D IRECT LDL Reviewed date:08/20/2024 09:41:09 AM Interpretation:High Performing Lab: Notes/Report: Cholesterol 211 0-200 mg/dL Triglycerides 136 0-150 mg/dL HDL 47 >=40 mg/dL LDL Calculated 137 0-100 mg/dL VLDL Cholesterol Kendrick 27.2 Non HDL Chol. (LDL+VLDL) 164 <145 mg/dL Chol/HDL Ratio 4.5 0.0-4.4 THYROID STIMULATING HORMONE WITH REFLEX TO FREE T4 AND FREE T3 Reviewed date:08/20/2024 09:40:43 AM Interpretation:Normal Performing Lab: Notes/Report: TSH 3.00 0.40-4.00 mcIU/mL TREPONEMA PALLIDUM ANTIBODY WITH REFLEX TO RPR AND PARTICLE AGGLUTINATION Reviewed date:08/20/2024 09:40:09 AM Interpretation:Negative Performing Lab: Notes/Report: T. Pallidum Antibodies Negative Negative HIV 1, 2 ANTIBODY, P24 ANTIG EN WITH REFLEX TO DIFFERENTIATION Reviewed date:08/20/2024 09:39:49 AM Interpretation:Negative Performing Lab: Notes/Report: This assay is a 4th generation assay allowing for earlier detection of HIV infection by detecting the presence of the HIV-1 p24 antigen as well as the traditional antibodies to HIV type 1 (including group O) and type 2. Use of a 4th generation assay is the current CDC recommendation for HIV screening. HIV Combo AB/AG Negative Negative HEPATITIS C ANTIBODY Reviewed date:08/20/2024 09:39:56 AM Interpretation:Negative Performing Lab: Notes/Report: Hepatitis C Antibody Negative Negative MICROALBUMIN CREATININE URIN E RATIO Reviewed date:08/20/2024 09:40:35 AM Interpretation:Abnormal Performing Lab: Notes/Report: Creatinine, Urine 82.0 Microalb, Ur 134.0 0.0-29.0 mg/L Microalb/Creat Ratio 163 <30 mg/g creat CHLAMYDIA TRACHOMATIS AND NE ISSERIA GONORRHOEAE MOLECULAR STUDY Reviewed date:08/20/2024 09:39:33 AM Interpretation:+ chlamydia Performing Lab: Notes/Report: Neisseria gonorrhoeae PCR Negative Negative Chlamydia trachomatis PCR Positive Negative HEMOGLOBIN A1C Reviewed date:08/20/2024 09:39:40 AM Interpretation:14.5 Performing Lab: Notes/Report: Hemoglobin A1C 14.5 <6.5 % Mean Bld Glu Estim. 369 HEPATITIS B SURFACE ANTIGEN WITH REFLEX TO CONFIRMATION Reviewed date:08/20/2024 09:40:17 AM Interpretation:Negative Performing Lab: Notes/Report: Over the counter supplements containing high doses of biotin may interfere with this assay. If interference is suspected, patients shoud be retested after refraining from biotin supplements for 72 hours. Hepatitis B Surface Ag Negative Negative HEPATITIS B CORE ANTIBODY, T OTAL Reviewed date:08/20/2024 09:40:03 AM Interpretation:Negative Performing Lab: Notes/Report: Hep B Core Total Ab Negative Negative HEPATITIS B SURFACE ANTIBODY Reviewed date:08/20/2024 09:40:54 AM Interpretation:no immunity Performing Lab: Notes/Report: >=10 mIU/mL is considered to be consistent with immunity. Hepatitis B Surface Ab Negative Negative Hepatitis B Surface Ab Quantitative <3.1 VAGINITIS PATHOGENS MOLECULA R STUDY Reviewed date:08/21/2024 03:34:00 PM Interpretation:+ Garnerella Performing Lab: Notes/Report: Trichomonas vaginalis Negative Negative Gardnerella vaginalis Positive Negative Gale Species Negative Negative VAGINITIS PATHOGENS MOLECULA R STUDY Reviewed date:09/15/2024 09:32:14 AM Interpretation:Positive Performing Lab: Notes/Report: Trichomonas vaginalis Negative Negative Gardnerella vaginalis Positive Negative Gale Species Negative Negative Reason For Referral [facility], [address] [place] [address] P: [phone] F: [phone] evaluate for persistent lower back and bilateral knee pain Diagnosis 1 Radiculopathy, lumba r region (M54.16) Referral Organization [facility] Referring Provider First Name Sabiha Referring Provider Last Name Sneha Referring Provider Speciality Nurse Prac titioner Referred Organization [facility] Referred Provider Torrie Rivers and S port Referred Address [address] [place], [place],[address], Referred Provider Specialty Physiotherap y General Notes Anuja Valle 08:44:35 AM > Faxed to [facility] 10/19/2024 08:47:17 AM > # [id number] x 24 visit, Anuja Valle 10/20/2024 10:41:20 AM > # [id number] x 20 visit for Susan EnriquezTori Paris 10/20/2024 10:41:32 AM > according to PS&P scheduled 10/26/24 Referral Priority Routine Referral Appointment Date 10/26/2024 Medications Medication SIG (Take, Route, Frequency, Duration) Notes Start Date End Date Status ACCU-CHEK MULTICLIX LANCET DEVICE, 1 CHECK BLOOD [...] (at bedtime) for 5 days 08/21/2024 Not-Taking Meloxicam 15 MG 1 tab(s) orally once a day for 10 days 10/16/2024 Active ALCOHOL PADS 100CT USE DAILY AND NEEDED FOR CHECKING BLOOD SUGAR AND INSULIN USE for 30 DAYS *Please review for potential replacement for e-prescription and drug interaction check* 08/20/2024 Active Lantus SoloStar 100 UNIT/ML 15 units subcutaneously daily for 30 days 08/20/2024 Active FREESTYLE PRECISION CHONG STRIPS TO CHECK BLOOD SUGAR MANUALLY NEEDED IF FREESTYLE SENSOR FAILS OR HAS QUESTIONABLE READINGS for 30 DAYS *Please review for potential replacement for e-prescription and drug interaction check* 08/20/2024 Not-Taking FREESTYLE SHARAD 3 PLUS SENSOR, 1 APPLY TOPICALLY EVERY 14 DAYS FOR CONTINUOUS GLUCOSE MONITORING for 28 DAYS *Please review for potential replacement for e-prescription and drug interaction check* 08/20/2024 Not-Taking FREESTYLE SHARAD 3 GLUCOSE MONITORING SYSTEM, 1 FOR CONTINUOUS GLUCOSE MONITORING for 90 DAYS *Please review for potential replacement for e-prescription and drug interaction check* 08/20/2024 Active Doxycycline Hyclate 100 MG 1 tab(s) orally 2 times a day for 7 days 08/20/2024 Not-Taking amLODIPine Besylate 5 MG 1 tab(s) orally once a day for 90 days 08/20/2024 Active Tirzepatide 2.5 MG/0.5 ML DIRECTED SUBCUTANEOUSLY ONCE A WEEK for 28 DAYS *Please review and pick correct strength-formula tion from Webstep options. If intended option is not shown, discontinue and re-order from Quick Search* 09/02/2024 Not-Taking Olmesartan Medoxomil 20 MG 1 tab(s) orally once a day for 90 days Active Immunizations Vaccine Route Administration Date Status Comme nts Hepatitis B (20 or more) Unknown 07/06/2022 Administere d Tdap Unknown 08/16/2018 Administered Tdap Unknown 08/10/2022 Administered PCV 20 Unknown 07/06/2022 Administered PPSV 23 Unknown 09/24/2018 Administered Influenza Unknown 05/16/2023 Administered Pfizer-Biontech Covid-19 Vac cine Administration - First Dose (Single Dose 30MCG/0.3ML 1ST) Unknown 08/31/2021 Administered Pfizer-Biontech Covid-19 Vac cine Administration-Second Dose (Single Dose 30MCG/0.3ML 2ND) Unknown 11/01/2021 Administered Social History Tobacco Use: Social History Observation Description Date Details (start date - stop date) Current Smoker NA - NA Tobacco Use Assessment MU Question Answer Notes What is your current smoking status? current smo ker Problems Problem Type SNOMED Code ICD Code Onset Dates Problem Status W/U Status Risk Notes Problem Diabetic peripheral neuropathy associated with type 2 diabetes mellitus (3264313964091) Type 2 diabetes mellitus with diabetic neuropathy, unspecified (E11.40) Active confirmed Problem Hyperglycemia due to type 2 diabetes mellitus (655067579354892) Type 2 diabetes mellitus with hyperglycemia (E11.65) Active confirmed Problem Type 2 diabetes mellitus with other specified complication (E11.69) Active confirmed Problem Morbid obesity (disorder) (824853882) Morbid (severe) obesity due to excess calories (E66.01) Active confirmed Problem Mixed hyperlipidemia (169545050) Mixed hyperlipidemia (E78.2) Active confirmed Problem Opioid dependence (22136268) Opioid dependence, uncomplicated (F11.20) Active confirmed Problem Essential hypertension (74314282) Essential (primary) hypertension (I10) Active confirmed Problem Long-term current use of insulin (639194437) 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 of insulin (Z79.4) Active confirmed Problem Body mass index 40+ - severely obese (752214206) Body mass index [BMI] 45.0-49.9, adult (Z68.42) Active confirmed Problem Sheltered homelessness (994162181910279) Sheltered homelessness (Z59.01) Active confirmed Vital Signs Temperature 97.9 degrees Fahrenheit 08/20/2024 Blood pressure diastolic 88 09/10/2024 Oximetry 98 09/10/2024 Height 60 in 10/16/2024 Blood pressure systolic 138 09/10/2024 Weight 239.4 lbs 09/10/2024 BMI 46.75 kg/m2 09/10/2024 Encounters Encounter Location Date Provider Diagnosis [address] [address] 11/14/2024 Provider Migration Radiculopathy, lumbar region M54.16 [facility] [address] [place] [address] 07/08/2024 Luh Davies TELE-[facility] [address] [facility] [place] [id number] 08/14/2024 Nursing [facility] Encounter for screening for COVID-19 Z11.52 ; Sheltered homelessness Z59.01 ; Encounter for screening for depression Z13.31 ; Encounter for screening for cardiovascular disorders Z13.6 ; Encounter for screening for respiratory tuberculosis Z11.1 ; Encounter for screening for infectious and parasitic diseases, unspecified Z11.9 ; Encounter for screening for other suspected endocrine disorder Z13.29 and Encounter for screening for infections with a predominantly sexual mode of transmission Z11.[address] [address] 08/19/2024 Nursing [facility] Encounter for screening for infectious and parasitic diseases, unspecified Z11.[address] [address] 08/20/2024 Bartdielical Hoover Encounter for screening for COVID-19 Z11.52 ; Encounter for general adult medical examination with abnormal findings Z00.01 ; Type 2 diabetes mellitus with hyperglycemia E11.65 ; Encounter for test, result unknown Z32.00 ; Chlamydial infection, unspecified A74.9 ; Essential (primary) hypertension I10 ; Acute vaginitis N76.0 ; Sheltered homelessness Z59.01 ; Opioid dependence, uncomplicated F11.20 ; Type 2 diabetes mellitus with diabetic neuropathy, unspecified E11.40 ; Type 2 diabetes mellitus with other specified complication E11.69 ; 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 of insulin Z79.4 and Mixed hyperlipidemia E78.[address] [address] 09/02/2024 [facility] Essential (primary) hypertension I10 and Type 2 diabetes mellitus with hyperglycemia E11.[address] 09/10/2024 [facility] Acute vaginitis N76. 0 and Essential (primary) hypertension I10 [facility] [address] [place] [address] [facility] [place] [place] [phone] 10/16/2024 Eddieliza Casionan Radiculopathy, lumbar region M54.16 and Pain in unspecified knee M25.[address] [address] 08/19/2024 Luh Davies [address] [address] 08/20/2024 Eddieliza Casionan Essential (primary) hypertension I10 [address] [address] 08/21/2024 Eddieliza Casionan Type 2 diabetes mellitus with hyperglycemia E11.[address] [address] 09/02/2024 Eddieliza Casionan Type 2 diabetes mellitus with hyperglycemia E11.65 ; Body mass index [BMI] 45.0-49.9, adult Z68.42 and Morbid (severe) obesity due to excess calories E66.[address] [address] 09/09/[address] [address] 09/10/2024 Eddieliza Casionan Vaginitis, vulvitis and vulvovaginitis in diseases classified elsewhere N77.[address] [address] 10/14/2024 Sabiha Hoover [address] [address] 10/15/2024 Luh Davies [address] [address] 11/16/2024 Sabiha Hoover Assessments Encounter Date Diagnosis (ICD Code) Assessment Notes Treatment Notes Treatment Clinical Notes Section Notes 08/19/2024 Encounter for screening for infectious and parasitic diseases, unspecified (ICD-10 - Z11.9) Labs drawn per protocol, no difficulties, sent to lab, pt to RTC for f/u 11/14/2024 Radiculopathy, lumbar region (ICD-10 - M54.16) 08/14/2024 Encounter for screening for COVID-19 (ICD-10 - [...] you are having concerning symptoms for COVID-19. 08/14/2024 Sheltered homelessness (ICD-10 - Z59.01) Medical, social, and psych history reviewed and documented. [facility] records obtained and immunization history updated. No medication reconciliation completed as pt. has no reported medication use for over a year. Pt. given an appt to establish care with provider, encouraged to contact clinic with any urgent issues or concerns prior to scheduled appt. 08/20/2024 Encounter for general adult medical examination with abnormal findings (ICD-10 - Z00.01) Annual PE performed.General recommendation for good health made: brush/floss your teeth 2x per day. Eat a healthy diet and obtain 30 minutes of aerobic exercise 5/7 days per week. Maintain high in take of water and avoid soda and energy drinks. Get 8 hours of sleep every night. 08/20/2024 Encounter for screening for COVID-19 (ICD-10 - Z11.52) Covid screening is negative. Discussed in detail with patient how to practice social distancing by avoiding public spaces and crowds now, wearing a mask in public to keep nose and mouth covered, and washing hands frequently especially before eating and after using the bathroom. Return to clinic if you develop any symptoms of concern to be rescreened or go to the emergency room if you are having concerning symptoms for COVID-19. 09/02/2024 Essential (primary) hypertension (ICD-10 - I10) Inital and repeat BP reading elevated. Pt again confirms she has been taking BP meds as prescribed. Te sent to Sabiha Hoover [employer] [employer] regarding readings. Pt denies chest pain, pressure, dizziness, SOB. 09/10/2024 Acute vaginitis (ICD-10 - N76.0) MB-Repeat panel sent for testing, t/e to provider. Will notify pt with results. 10/16/2024 Pain in unspecified knee (ICD-10 - M25.569) Will trial Meloxicam 10/16/2024 Radiculopathy, lumbar region (ICD-10 - M54.16) she agrees to go for physical therapy 08/20/2024 Essential (primary) hypertension (ICD-10 - I10) 08/21/2024 Type 2 diabetes mellitus with hyperglycemia (ICD-10 - E11.65) 09/02/2024 Type 2 diabetes mellitus with hyperglycemia (ICD-10 - E11.65) 09/02/2024 Body mass index [BMI] 45.0-49.9, adult (ICD-10 - Z68.42) 09/10/2024 Vaginitis, vulvitis and vulvovaginitis in diseases classified elsewhere (ICD-10 - N77.1) 08/14/2024 Encounter for screening for depression (ICD-10 - Z13.31) PHQ-9 assessed, score was 7, mild depression, pt. receives MH services through [facility]. 08/20/2024 Type 2 diabetes mellitus with hyperglycemia (ICD-10 - E11.65) Agrees to start Lantus. Discussed Hypoglycemia symptoms include shaking, sweating, fast heartbeat, and blurred vision. Will plan on starting GLP-1 agonist after she's done with antibiotics. We are starting her on a number of medications. Gradual introduction of these meds may be better tolerated 09/02/2024 Type 2 diabetes mellitus with hyperglycemia (ICD-10 - E11.65) Sharad meter and sensor reviewed with pt. Sensor applied to underside of left arm, skin tac and clear dressing also used due to concern of poor adhesion of sensor related to excess skin of pts arm. Sensor paired with meter. Pt encouraged to contact clinic with any questions/concerns and to rtc in 2 weeks for next sensor application. 09/10/2024 Essential (primary) hypertension (ICD-10 - I10) BP slightly improved, RTC in 1 week for repeat BP. Pt agrees with plan. 09/02/2024 Morbid (severe) obesity due to excess calories (ICD-10 - E66.01) 08/14/2024 Encounter for screening for cardiovascular disorders (ICD-10 - Z13.6) 08/20/2024 Encounter for test, result unknown (ICD-10 - Z32.00) Requests test 08/14/2024 Encounter for screening for respiratory tuberculosis (ICD-10 - Z11.1) 08/20/2024 Chlamydial infection, unspecified (ICD-10 - A74.9) Agrees to treatment. Encouraged sex abstinence until treatment is completed. Advised to advise her sexual partners to seek testing 08/14/2024 Encounter for screening for infectious and parasitic diseases, unspecified (ICD-10 - Z11.9) 08/20/2024 Essential (primary) hypertension (ICD-10 - I10) Discussed Amlodipine. Serious S/E: chest pain, OK, hypotension, hepatitis, hypersensitivity reactions. Lesser S/E: peripheral edema, fatigue, palpitations. Dizziness, nausea, flushing, skin reactions. Discussed olmesartan S/E: Rhabdomyolysis, hepatitis, hyperkalemia, diarrhea, GI upset, chest pain, cough, hypotension, dizziness. Agrees to have BP checked once a week in office 08/14/2024 Encounter for screening for other suspected endocrine disorder (ICD-10 - Z13.29) 08/20/2024 Acute vaginitis (ICD-10 - N76.0) Agrees to BV treatment. Discouraged douching 08/14/2024 Encounter for screening for infections with a predominantly sexual mode of transmission (ICD-10 - Z11.3) 08/20/2024 Sheltered homelessness (ICD-10 - Z59.01) Stays at a recovery home 08/20/2024 Opioid dependence, uncomplicated (ICD-10 - F11.20) Reports remaining abstinent. 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 Freestyle sharad sensor is not approved today. We will resubmit on next OV 08/20/2024 Mixed hyperlipidemia (ICD-10 - E78.2) We will start statin on next OV to ensure she can tolerate all these new medications 11/25/2024 Other 12/24/2024 Other 08/14/2024 Other Pt. request Cedrick tsai, pt. advised to obtain the list from Dental when she comes in to review Dental practices that take her insurance, pt. agreeable with plan 08/20/2024 Other She is overwhel med today with her lab results and new medications. We will discuss on next visit eye referral and screening for cervical CA and breast CA with possible referral to ARCHITECTURAL RENDERER for AUB. 09/02/2024 Other Pt asking about GLP1 med, TE sent to provider regarding med. 10/16/2024 Other Time spent in visit: 5 minutes Plan Of Treatment Pending Test Test Name Order Date VAGINOSIS DNA PROBE PANEL 08/20/2024 VAGINOSIS DNA PROBE PANEL 09/10/2024 CBC 08/14/2024 CHLAMYDIA / GC DNA W RFLX 08/14/2024 HEPATITIS B CORE AB TOTAL 08/14/2024 HEPATITIS B SURFACE ANTIBODY 08/14/2024 HEPATITIS B SURFACE ANTIGEN 08/14/2024 HIV 1 AND 2 ANTIBODY SCREEN 08/14/2024 LIPID PROFILE 08/14/2024 QUANTIFERON TB GOLD 08/14/2024 TSH CASCADE 08/14/2024 MICROALB/CREAT RATIO, RANDOM 08/14/2024 COMPREHENSIVE METABOLIC PANEL 08/14/2024 TREPONEMA PALLIDUM ANTIBODY WITH REFLEX TO RPR AND PARTICLE AGGLUTINATION 08/14/2024 HEPATITIS C ANTIBODY 08/14/2024 HEMOGLOBIN A1C 08/14/2024 Next Appt Details Provider Name:Sabiha diamond, 02/01/2025 01:00:00 PM, [address] [facility], [place], [address], Insurance Providers Payer Name Payer Address Payer Phone Subscriber Number Group Number Insured Name Patient Relationship to Insured Coverage Start Date Coverage End Date [place] Medicaid C3 [address] [place], [place] [id number] Tree Mcdonough Self - patient is the insured Medical (General) History Medical History History ICD Code Type 2 Diabetes Mellitus Obesity Hypertension High cholesterol PTSD Bipolar Anxiety Surgical History Surgery Date(Month/Year) Throat reconstructive surgery 2005 06/05 03/08 04/06 Hospitalization History Reason Date(Month/Year) Kidney stones + 2019
--- NOTE | 2025-01-23 09:42 | PC.NURSE ---
patient states she has a known history of htn, states she does not take any medications for this although she states she is supposed to be .
[2025-01-23 09:43] VITALS: BP 177/85
[2025-01-23 09:50] VITALS: BP 177/85; PULSE 86; RESP 18; TEMP 36.1; O2SAT 97
== END 2025-01-23 09:56 | disposition home or self-care (01) ==
PROVIDERS: Emergency Provider Emergency Medicine Emergency Medical Services
DX: L03.811 Cellulitis of head [any part, except face] (principal); L02.811 Cutaneous abscess of head [any part, except face]; N89.8 Other specified noninflammatory disorders of vagina; Z86.14 Personal history of Methicillin resistant Staphylococcus aureus infection; Z87.42 Personal history of other diseases of the female genital tract; Z91.148 Patient's other noncompliance with medication regimen for other reason
CPT/HCPCS: 99282; 99283